=== PATIENT | male | born 1935 | race African-American/Black ===

== ENCOUNTER 2018-07-11 13:56 | Inpatient (IN) | payer MEDICARE ==
[~2018-07-11] VITALS: Ht 167.6 cm; Wt 75.5 kg
[~2018-07-11 13:56] MED LIST: METFORMIN
[2018-07-11] MEDS ORDERED: SODIUM CHLORIDE 0.9% 1,000 ML IV ONE (14:21)
[2018-07-11 15:24] LABS: CHLORIDE 98 mEq/L (98-107)
[2018-07-11 15:26] LABS: INR 1.1; PARTIAL THROMBOPLASTIN TIME 33.7 sec (23.4-31.0); PROTHROMBIN TIME 11.4 sec (9.1-11.1)
[2018-07-11 15:28] LABS: ETHANOL BLOOD < 10 mg/dL
[2018-07-11 15:30] LABS: BASOPHILS % 0.4 % (0.0-2.0); EOSINOPHILS % 0.3 % (0.0-5.0); HEMATOCRIT. 39.9 % (42.0-52.0); HEMOGLOBIN. 13.4 g/dL (14.0-18.0); LYMPHOCYTES % 31.7 % (20.0-50.0); MEAN CORPUSCULAR HEMOGLOBIN 28.2 pg (28.0-32.0); MEAN PLATELET VOLUME 10.2 fl (7.4-10.4); MONOCYTES % 5.6 % (2.0-8.0); PLATELET 157 x1000/uL (130-400); RED BLOOD CELL COUNT 4.75 mill/uL (4.7-6.1); RED CELL DISTRIBUTION WIDTH 14.6 % (11.6-14.6)
[2018-07-11 15:32] LABS: CREATINE KINASE 128 IU/L (39-308)
[2018-07-11] MEDS ORDERED: ENOXAPARIN 40MG/0.4ML SYR SUBCUT SCH (18:15)
[2018-07-11] MEDS ORDERED: MAGNESIUM/ALUMINUM HYDROXIDE/SIMETHICONE 30ML UDC PO PRN (18:15)
[2018-07-11] MEDS ORDERED: CLONIDINE 0.1MG TABLET PO PRN (18:15)
[2018-07-11] MEDS ORDERED: ONDANSETRON HCL 4MG/2ML INJ IV PRN (18:15)
[2018-07-11] MEDS ORDERED: GUAIFENESIN 200MG/10ML SUGAR FREE UDC PO PRN (18:15)
[2018-07-11] MEDS ORDERED: ACETAMINOPHEN 325MG TABLET PO PRN (18:15)
[2018-07-11] MEDS ORDERED: HYDROMORPHONE HCL/PF 2MG/ML CPJ IV PRN (18:30)
[2018-07-11 18:45] LABS: CLARITY URINE CLEAR (CLEAR); COLOR URINE YELLOW (YELLOW); KETONES URINE TRACE (NEGATIVE); LEUKOCYTE ESTERASE URINE NEGATIVE (NEGATIVE); NITRITE URINE NEGATIVE (NEGATIVE); OCCULT BLOOD URINE TRACE (NEGATIVE); PROTEIN URINE 1+ (NEGATIVE); SPECIFIC GRAVITY URINE 1.018 (1.005-1.030)
[2018-07-11 18:52] LABS: PHOSPHORUS 2.4 mg/dL (2.5-4.9)
[2018-07-11 19:00] LABS: *BARBITURATES SCREEN URINE NEGATIVE (NEGATIVE); *COCAINE SCREEN URINE NEGATIVE (NEGATIVE); METHADONE URINE SCREEN NEGATIVE (NEGATIVE); OPIATES URINE SCREEN NEGATIVE (NEGATIVE); PHENCYCLIDINE URINE SCREEN NEGATIVE (NEGATIVE)
[2018-07-11 19:01] LABS: CANNABINOID URINE SCREEN NEGATIVE (NEGATIVE)
[2018-07-11 19:04] LABS: *BENZODIAZEPINES SCREEN URINE NEGATIVE (NEGATIVE)
[2018-07-11 19:10] LABS: *AMPHETAMINES SCREEN URINE NEGATIVE (NEGATIVE)
[2018-07-11 21:10] VITALS: BP 106/70
[2018-07-12] VITALS: BP 114/68
[2018-07-12] MEDS ORDERED: PANTOPRAZOLE 40MG DR TABLET PO SCH ×2 (00:15→07:20)
[2018-07-12] MEDS ORDERED: MAGNESIUM 4 G PREMIX 100 ML IV SCH (01:00)
[2018-07-12 01:19] LABS: CREATINE KINASE MB FRACTION 3.2 ng/mL (0.5-3.6)
[2018-07-12] MEDS: IPRATROPIUM/ALBUTEROL 0.5-3(2.5)MG/3ML NEB HHN SCH ×6 (01:25→20:20)
[2018-07-12] MEDS ORDERED: PAMIDRONATE DISODIUM 60 MG in SODIUM CHLORIDE 0.9% 1,000 ML IV SCH (02:00)
[2018-07-12 04:00] VITALS: BP 111/63
[2018-07-12 08:00] VITALS: BP_SYST 104; BP_SYST 114; BP_DIAS 60; BP_DIAS 68
[2018-07-12 08:02] LABS: BASOPHILS % 0.3 % (0.0-2.0); EOSINOPHILS % 0.5 % (0.0-5.0); HEMATOCRIT. 35.9 % (42.0-52.0); HEMOGLOBIN. 11.8 g/dL (14.0-18.0); LYMPHOCYTES % 27.9 % (20.0-50.0); MEAN CORPUSCULAR VOLUME 85.5 fL (80.0-94.0); MONOCYTES % 8.2 % (2.0-8.0); NEUTROPHILS % 63.1 % (40.0-76.0); PLATELET 132 x1000/uL (130-400); RED CELL DISTRIBUTION WIDTH 14.5 % (11.6-14.6)
[2018-07-12] MEDS: SODIUM CHL 0.45% + KCL 20MEQ/L 1,000 ML IV SCH ×3 (08:12→18:40)
[2018-07-12] MEDS: PANTOPRAZOLE SODIUM 40 MG/VIAL IV SCH (09:20)
[2018-07-12] MEDS: ENOXAPARIN 40MG/0.4ML SYR SUBCUT SCH (09:21)
[2018-07-12 09:43] LABS: CREATINE KINASE MB FRACTION 2.5 ng/mL (0.5-3.6)
[2018-07-12 09:53] LABS: CHLORIDE 103 mEq/L (98-107); PHOSPHORUS 1.8 mg/dL (2.5-4.9)
[2018-07-12 12:00] VITALS: BP 110/62
[2018-07-12 16:00] VITALS: BP 109/59
[2018-07-12 17:26] LABS: AMMONIA 33 uMol/L (<32)
[2018-07-12 17:31] LABS: T4 FREE 0.99 ng/dL (0.76-1.46)
[2018-07-12] MEDS ORDERED: DEXTROSE 50% WATER 50ML SYRINGE IV PRN (19:15)
[2018-07-12 20:00] VITALS: BP 108/63
[2018-07-12] MEDS: BLOOD SUGAR DIAGNOSTIC STRIP TEST SCH (21:03)
[2018-07-12] MEDS: INSULIN LISPRO 100 UNITS/ML SUBCUT SCH (21:49)
[2018-07-13] VITALS (8 sets, daily range): BP systolic 92–129; BP diastolic 41–68
[2018-07-13] MEDS: IPRATROPIUM/ALBUTEROL 0.5-3(2.5)MG/3ML NEB HHN SCH ×6 (00:17→20:28)
[2018-07-13] MEDS: SODIUM CHL 0.45% + KCL 20MEQ/L 1,000 ML IV SCH ×4 (02:08→16:59)
[2018-07-13] MEDS: BLOOD SUGAR DIAGNOSTIC STRIP TEST SCH ×4 (06:34→20:48)
[2018-07-13] MEDS: INSULIN LISPRO 100 UNITS/ML SUBCUT SCH ×4 (07:50→20:48)
[2018-07-13] MEDS: PANTOPRAZOLE SODIUM 40 MG/VIAL IV SCH (09:27)
[2018-07-13] MEDS: ENOXAPARIN 40MG/0.4ML SYR SUBCUT SCH (09:28)
[2018-07-13 20:46] LABS: BASOPHILS % 0.5 % (0.0-2.0); EOSINOPHILS % 1.5 % (0.0-5.0); HEMATOCRIT. 29.6 % (42.0-52.0); MEAN CORPUSCULAR HEMOGLOBIN 28.3 pg (28.0-32.0); MEAN CORPUSCULAR VOLUME 83.9 fL (80.0-94.0); MEAN PLATELET VOLUME 10.1 fl (7.4-10.4); MONOCYTES % 8.6 % (2.0-8.0); NEUTROPHILS % 63.4 % (40.0-76.0); PLATELET 114 x1000/uL (130-400); RED BLOOD CELL COUNT 3.53 mill/uL (4.7-6.1); RED CELL DISTRIBUTION WIDTH 14.6 % (11.6-14.6)
[2018-07-14] VITALS: BP 117/62
[2018-07-14] MEDS: SODIUM CHL 0.45% + KCL 20MEQ/L 1,000 ML IV SCH ×2 (01:05→09:16)
[2018-07-14 04:09] VITALS: BP 105/68
[2018-07-14] MEDS: IPRATROPIUM/ALBUTEROL 0.5-3(2.5)MG/3ML NEB HHN SCH ×6 (04:37→19:58)
[2018-07-14] MEDS: BLOOD SUGAR DIAGNOSTIC STRIP TEST SCH ×4 (06:14→21:42)
[2018-07-14 07:29] LABS: BASOPHILS % 0.1 % (0.0-2.0); EOSINOPHILS % 1.4 % (0.0-5.0); HEMATOCRIT. 30.8 % (42.0-52.0); HEMOGLOBIN. 10.3 g/dL (14.0-18.0); LYMPHOCYTES % 29.4 % (20.0-50.0); MEAN CORPUSCULAR HEMOGLOBIN 27.9 pg (28.0-32.0); MEAN CORPUSCULAR VOLUME 83.4 fL (80.0-94.0); MEAN PLATELET VOLUME 10.7 fl (7.4-10.4); MONOCYTES % 8.2 % (2.0-8.0); NEUTROPHILS % 60.9 % (40.0-76.0); PLATELET 117 x1000/uL (130-400); RED BLOOD CELL COUNT 3.69 mill/uL (4.7-6.1); RED CELL DISTRIBUTION WIDTH 14.4 % (11.6-14.6)
[2018-07-14] MEDS: INSULIN LISPRO 100 UNITS/ML SUBCUT SCH ×4 (07:50→21:42)
[2018-07-14 07:54] VITALS: BP 114/69
[2018-07-14] MEDS: FAMOTIDINE 20MG/2ML VIAL IV SCH (08:33)
[2018-07-14] MEDS: ENOXAPARIN 40MG/0.4ML SYR SUBCUT SCH (08:33)
[2018-07-14 09:25] LABS: PHOSPHORUS 0.3 mg/dL (2.5-4.9)
[2018-07-14 12:08] VITALS: BP 113/66
[2018-07-14] MEDS ORDERED: MAGNESIUM SULFATE 2 GM in DEXTROSE 5% WATER 50 ML IV NR (12:30)
[2018-07-14] MEDS ORDERED: SODIUM PHOS,M-BASIC-D-BASIC 20 MM in DEXT 5% WATER 243.3333 ML IV NR (13:00)
[2018-07-14 16:34] VITALS: BP 119/69
[2018-07-14 17:00] LABS: PHOSPHORUS 0.3 mg/dL (2.5-4.9)
[2018-07-14 20:50] VITALS: BP 124/74
[2018-07-15] VITALS (7 sets, daily range): BP systolic 115–153; BP diastolic 74–103
[2018-07-15] MEDS: SODIUM CHL 0.45% + KCL 20MEQ/L 1,000 ML IV SCH (00:11)
[2018-07-15] MEDS: IPRATROPIUM/ALBUTEROL 0.5-3(2.5)MG/3ML NEB HHN SCH ×6 (00:23→20:46)
[2018-07-15] MEDS: BLOOD SUGAR DIAGNOSTIC STRIP TEST SCH ×4 (06:35→21:55)
[2018-07-15] MEDS: INSULIN LISPRO 100 UNITS/ML SUBCUT SCH ×5 (07:50→21:00)
[2018-07-15] MEDS: FAMOTIDINE 20MG/2ML VIAL IV SCH (08:43)
[2018-07-15] MEDS: ENOXAPARIN 40MG/0.4ML SYR SUBCUT SCH (08:43)
[2018-07-15] MEDS ORDERED: GLIMEPIRIDE 2MG TABLET PO NR (08:45)
[2018-07-15 10:32] LABS: BASOPHILS % 0.3 % (0.0-2.0); EOSINOPHILS % 0.5 % (0.0-5.0); HEMATOCRIT. 32.1 % (42.0-52.0); HEMOGLOBIN. 10.6 g/dL (14.0-18.0); LYMPHOCYTES % 18.9 % (20.0-50.0); MEAN CORPUSCULAR HEMOGLOBIN 27.9 pg (28.0-32.0); MEAN CORPUSCULAR VOLUME 84.9 fL (80.0-94.0); MONOCYTES % 7.3 % (2.0-8.0); PLATELET 118 x1000/uL (130-400); RED BLOOD CELL COUNT 3.79 mill/uL (4.7-6.1); RED CELL DISTRIBUTION WIDTH 14.6 % (11.6-14.6)
[2018-07-15] MEDS: POTASSIUM-SODIUM PHOSPHATE POWDER PACKET PO SCH ×2 (10:50→17:43)
[2018-07-15 11:46] LABS: PHOSPHORUS 0.7 mg/dL (2.5-4.9)
[2018-07-15] MEDS: SODIUM CHLORIDE 0.45% 1,000 ML IV SCH ×2 (13:15→18:19)
[2018-07-15] MEDS ORDERED: MAGNESIUM 2 G PREMIX 50 ML IV NR (14:00)
[2018-07-15] MEDS ORDERED: SODIUM PHOS,M-BASIC-D-BASIC 20 MM in DEXT 5% WATER 243.3333 ML IV NR (14:30)
[2018-07-16] MEDS: IPRATROPIUM/ALBUTEROL 0.5-3(2.5)MG/3ML NEB HHN SCH ×3 (00:34→09:05)
[2018-07-16 04:00] VITALS: BP 114/76
[2018-07-16] MEDS: BLOOD SUGAR DIAGNOSTIC STRIP TEST SCH (06:30)
[2018-07-16] MEDS ORDERED: GLIMEPIRIDE 2MG TABLET PO SCH (07:20)
[2018-07-16] MEDS: INSULIN LISPRO 100 UNITS/ML SUBCUT SCH (07:50)
[2018-07-16 08:35] VITALS: BP 134/68
[2018-07-16] MEDS: FAMOTIDINE 20MG/2ML VIAL IV SCH (08:35)
[2018-07-16] MEDS: POTASSIUM-SODIUM PHOSPHATE POWDER PACKET PO SCH (08:54)
[2018-07-16] MEDS: ENOXAPARIN 40MG/0.4ML SYR SUBCUT SCH (08:55)
== END 2018-07-16 11:34 | DRG 314 ==
LOC: ER 13:56 → 6WST 16:58 → EDBEDREQTM 17:07 → EDBEDREQ 17:07 → ENRESERV 20:05 → CANRESERV 20:05 → ENRESERV 20:35 → CANRESERV 20:35 → ENRESERV 20:37
PROVIDERS: ADMIT Internal Medicine Geriatric Medicine; ATTEND Internal Medicine Geriatric Medicine
DX: I95.9 Hypotension, unspecified (principal); G92 Toxic encephalopathy; N17.9 Acute kidney failure, unspecified; I13.0 Hypertensive heart and chronic kidney disease with heart failure and stage 1 through stage 4 chronic kidney disease, or unspecified chronic kidney disease; N18.9 Chronic kidney disease, unspecified; I50.9 Heart failure, unspecified; D63.8 Anemia in other chronic diseases classified elsewhere; E86.0 Dehydration; E03.9 Hypothyroidism, unspecified; R00.0 Tachycardia, unspecified; E83.42 Hypomagnesemia; N40.0 Benign prostatic hyperplasia without lower urinary tract symptoms; E11.22 Type 2 diabetes mellitus with diabetic chronic kidney disease; N13.9 Obstructive and reflux uropathy, unspecified; E83.52 Hypercalcemia; E21.0 Primary hyperparathyroidism; E83.39 Other disorders of phosphorus metabolism; E83.51 Hypocalcemia; E88.09 Other disorders of plasma-protein metabolism, not elsewhere classified; H91.90 Unspecified hearing loss, unspecified ear; Z79.4 Long term (current) use of insulin; Z86.711 Personal history of pulmonary embolism; Z86.718 Personal history of other venous thrombosis and embolism; Z87.891 Personal history of nicotine dependence; Z90.49 Acquired absence of other specified parts of digestive tract; Z95.5 Presence of coronary angioplasty implant and graft; Z79.84 Long term (current) use of oral hypoglycemic drugs
CPT/HCPCS: 36415; 70450; 70551; 71045; 80048; 80053; 80305; 81003; 82140; 82270; 82330; 82550; 82553; 82607; 82746; 82962; 83036; 83540; 83550; 83605; 83690; 83735; 83880; 83970; 84100; 84439; 84443; 84481; 84484; 85025; 85610; 85730; 87077; 87086; 87186; 93005; 93306; 93970; 94640; 96360; 97162; 97530; 99285; C1893; C9113; G0482; J1650; J1815; J2405; J2430; J3475; J3480; J3490; J7030; J7050; J7060; J7620

== ENCOUNTER → 2018-08-26 | Outpatient (CLI) | payer MEDICARE ==
[~2018-08-26] MED LIST changes: +ACET-2708 PO; +AMLO2.5T45 MT; +CLON0.1T PO; +DOCU250C14 PO; +HYDR2TAB4 PO; +INSLIS SUBCUT; +LINA5TAB PO; +LOV40 SQ; +METO2.5T14 MT; +ONDA4TAB5 PO; +SIME125C PO; +SITA25TA3 PO
== END | disposition home or self-care (01) ==
LOC: NM 07:23
PROVIDERS: ATTEND Surgery
DX: E21.3 Hyperparathyroidism, unspecified (principal)
CPT/HCPCS: 78070; A9500

== ENCOUNTER 2018-09-02 14:53 | Inpatient (IN) | payer MEDICARE ==
[~2018-09-02] VITALS: Ht 182.9 cm; Wt 82.1 kg
[~2018-09-02 14:53] MED LIST changes: -ACET-2708 PO; -AMLO2.5T45 MT; -CLON0.1T PO; -DOCU250C14 PO; -HYDR2TAB4 PO; -INSLIS SUBCUT; -LINA5TAB PO; -LOV40 SQ; -METO2.5T14 MT; -ONDA4TAB5 PO; -SIME125C PO; -SITA25TA3 PO
[2018-09-02] MEDS ORDERED: SODIUM CHLORIDE 0.9% 1,000 ML IV ONE ×2 (15:41→18:00)
[2018-09-02 17:06] LABS: BASOPHILS % 0.3 % (0.0-2.0); EOSINOPHILS % 1.6 % (0.0-5.0); HEMATOCRIT. 35.8 % (42.0-52.0); HEMOGLOBIN. 11.7 g/dL (14.0-18.0); LYMPHOCYTES % 36.5 % (20.0-50.0); MEAN CORPUSCULAR HEMOGLOBIN 27.6 pg (28.0-32.0); MEAN CORPUSCULAR VOLUME 84.3 fL (80.0-94.0); MEAN PLATELET VOLUME 9.4 fl (7.4-10.4); NEUTROPHILS % 55.6 % (40.0-76.0); PLATELET 226 x1000/uL (130-400); RED BLOOD CELL COUNT 4.25 mill/uL (4.7-6.1); RED CELL DISTRIBUTION WIDTH 14.5 % (11.6-14.6)
[2018-09-02 17:09] LABS: INR 1.1; PROTHROMBIN TIME 10.8 sec (9.1-11.1)
[2018-09-02 17:13] LABS: CHLORIDE 104 mEq/L (98-107)
[2018-09-02] MEDS ORDERED: ASPIRIN 81MG TABLET PO ONE (17:45)
[2018-09-02] MEDS ORDERED: ACETAMINOPHEN 325MG TABLET PO PRN (21:00)
[2018-09-02] MEDS ORDERED: CLONIDINE 0.1MG TABLET PO PRN (21:00)
[2018-09-02] MEDS ORDERED: IPRATROPIUM/ALBUTEROL 0.5-3(2.5)MG/3ML NEB HHN SCH (21:00)
[2018-09-02] MEDS ORDERED: ONDANSETRON HCL 4MG/2ML INJ IV PRN (21:00)
[2018-09-02] MEDS ORDERED: HYDROMORPHONE HCL/PF 2MG/ML CPJ IV PRN (21:00)
[2018-09-02] MEDS ORDERED: MAGNESIUM/ALUMINUM HYDROXIDE/SIMETHICONE 30ML UDC PO PRN (21:00)
[2018-09-02] MEDS ORDERED: METO2.5T14 MT (23:52)
[2018-09-02] MEDS ORDERED: AMLO2.5T45 MT (23:52)
[2018-09-02] MEDS ORDERED: SITA25TA3 PO (23:58)
[2018-09-03] VITALS: BP 159/95
[2018-09-03 00:15] LABS: CREATINE KINASE MB FRACTION 1.5 ng/mL (0.5-3.6)
[2018-09-03 00:22] VITALS: BP 159/95
[2018-09-03] MEDS ORDERED: PAMIDRONATE DISODIUM 60 MG in SODIUM CHLORIDE 0.9% 1,000 ML IV NR (01:00)
[2018-09-03] MEDS ORDERED: DEXTROSE 50% WATER 50ML SYRINGE IV PRN (02:15)
[2018-09-03 04:00] VITALS: BP 129/73
[2018-09-03] MEDS: BLOOD SUGAR DIAGNOSTIC STRIP TEST SCH ×4 (06:11→20:43)
[2018-09-03 07:48] LABS: BASOPHILS % 0.4 % (0.0-2.0); EOSINOPHILS % 1.2 % (0.0-5.0); HEMATOCRIT. 29.4 % (42.0-52.0); HEMOGLOBIN. 9.9 g/dL (14.0-18.0); LYMPHOCYTES % 28.6 % (20.0-50.0); MEAN CORPUSCULAR HEMOGLOBIN 28.1 pg (28.0-32.0); MEAN CORPUSCULAR VOLUME 83.9 fL (80.0-94.0); MEAN PLATELET VOLUME 9.5 fl (7.4-10.4); MONOCYTES % 5.7 % (2.0-8.0); NEUTROPHILS % 64.1 % (40.0-76.0); PLATELET 189 x1000/uL (130-400); RED CELL DISTRIBUTION WIDTH 14.6 % (11.6-14.6)
[2018-09-03] MEDS: INSULIN LISPRO 100 UNITS/ML SUBCUT SCH ×4 (07:50→20:43)
[2018-09-03 08:01] LABS: CHLORIDE 110 mEq/L (98-107)
[2018-09-03 08:12] LABS: CREATINE KINASE MB FRACTION 1.3 ng/mL (0.5-3.6)
[2018-09-03 08:45] LABS: CLARITY URINE CLOUDY (CLEAR); COLOR URINE YELLOW (YELLOW); KETONES URINE NEGATIVE (NEGATIVE); LEUKOCYTE ESTERASE URINE 1+ (NEGATIVE); NITRITE URINE NEGATIVE (NEGATIVE); OCCULT BLOOD URINE TRACE (NEGATIVE); PROTEIN URINE TRACE (NEGATIVE); SPECIFIC GRAVITY URINE 1.013 (1.005-1.030); UROBILINOGEN URINE 0.2 E.U./dL (0.2-1.0)
[2018-09-03] MEDS: SODIUM CHL 0.45% + KCL 20MEQ/L 1,000 ML IV SCH ×4 (08:55→22:35)
[2018-09-03] MEDS: ENOXAPARIN 40MG/0.4ML SYR SUBCUT SCH (08:56)
[2018-09-03 09:22] LABS: *AMPHETAMINES SCREEN URINE NEGATIVE (NEGATIVE); *BARBITURATES SCREEN URINE NEGATIVE (NEGATIVE); *BENZODIAZEPINES SCREEN URINE NEGATIVE (NEGATIVE); *COCAINE SCREEN URINE NEGATIVE (NEGATIVE); CANNABINOID URINE SCREEN NEGATIVE (NEGATIVE); METHADONE URINE SCREEN NEGATIVE (NEGATIVE); OPIATES URINE SCREEN NEGATIVE (NEGATIVE); PHENCYCLIDINE URINE SCREEN NEGATIVE (NEGATIVE)
[2018-09-03] MEDS ORDERED: MEDICATION NOT ON FORMULARY EA (Amlodipine Besylate 1 TAB) MT SCH (09:45)
[2018-09-03] MEDS ORDERED: MEDICATION NOT ON FORMULARY EA (Sitagliptin Phosphate (Januvia) 1 TAB) PO SCH (09:45)
[2018-09-03 12:00] VITALS: BP 143/82
[2018-09-03] MEDS: LINAGLIPTIN 5MG TABLET PO SCH (13:26)
[2018-09-03] MEDS: AMLODIPINE 2.5MG TABLET PO SCH (13:26)
[2018-09-03 16:00] VITALS: BP 118/63
[2018-09-03] MEDS: DOCUSATE SODIUM 100MG CAPSULE PO SCH (17:32)
[2018-09-03 20:48] VITALS: BP 107/63
[2018-09-04 00:27] VITALS: BP 124/67
[2018-09-04 04:00] VITALS: BP 133/84
[2018-09-04] MEDS: SODIUM CHL 0.45% + KCL 20MEQ/L 1,000 ML IV SCH ×2 (06:22→21:23)
[2018-09-04] MEDS: BLOOD SUGAR DIAGNOSTIC STRIP TEST SCH ×4 (06:22→21:08)
[2018-09-04] MEDS: INSULIN LISPRO 100 UNITS/ML SUBCUT SCH ×4 (07:50→21:00)
[2018-09-04 08:00] VITALS: BP 114/73
[2018-09-04] MEDS: AMLODIPINE 2.5MG TABLET PO SCH (08:27)
[2018-09-04] MEDS: LINAGLIPTIN 5MG TABLET PO SCH (08:27)
[2018-09-04] MEDS: ENOXAPARIN 40MG/0.4ML SYR SUBCUT SCH (08:29)
[2018-09-04 12:00] VITALS: BP 135/80
[2018-09-04 16:00] VITALS: BP 116/65
[2018-09-04] MEDS: DOCUSATE SODIUM 100MG CAPSULE PO SCH (17:19)
[2018-09-04 20:00] VITALS: BP 132/80
[2018-09-05] VITALS (7 sets, daily range): BP systolic 108–159; BP diastolic 67–94
[2018-09-05] MEDS: SODIUM CHL 0.45% + KCL 20MEQ/L 1,000 ML IV SCH ×2 (05:54→09:00)
[2018-09-05] MEDS: BLOOD SUGAR DIAGNOSTIC STRIP TEST SCH ×3 (06:22→17:20)
[2018-09-05 07:23] LABS: BASOPHILS % 0.2 % (0.0-2.0); EOSINOPHILS % 1.3 % (0.0-5.0); HEMATOCRIT. 29.5 % (42.0-52.0); HEMOGLOBIN. 9.7 g/dL (14.0-18.0); LYMPHOCYTES % 21.2 % (20.0-50.0); MEAN CORPUSCULAR HEMOGLOBIN 27.9 pg (28.0-32.0); MEAN CORPUSCULAR VOLUME 84.9 fL (80.0-94.0); MEAN PLATELET VOLUME 9.3 fl (7.4-10.4); MONOCYTES % 5.9 % (2.0-8.0); NEUTROPHILS % 71.4 % (40.0-76.0); PLATELET 203 x1000/uL (130-400); RED BLOOD CELL COUNT 3.47 mill/uL (4.7-6.1); RED CELL DISTRIBUTION WIDTH 14.8 % (11.6-14.6)
[2018-09-05] MEDS: INSULIN LISPRO 100 UNITS/ML SUBCUT SCH ×3 (07:50→17:44)
[2018-09-05 09:40] LABS: CHLORIDE 107 mEq/L (98-107)
[2018-09-05] MEDS: AMLODIPINE 2.5MG TABLET PO SCH (09:56)
[2018-09-05] MEDS: ENOXAPARIN 40MG/0.4ML SYR SUBCUT SCH (09:56)
[2018-09-05] MEDS: LINAGLIPTIN 5MG TABLET PO SCH (09:56)
[2018-09-05] MEDS: DOCUSATE SODIUM 100MG CAPSULE PO SCH (17:55)
[2018-09-09] MEDS ORDERED: DOCU250C14 PO (14:20)
[2018-09-09] MEDS ORDERED: LINA5TAB PO (14:20)
[2018-09-09] MEDS ORDERED: LOV40 SQ (14:20)
== END 2018-09-05 20:55 | DRG 643 ==
LOC: ER 15:00 → EDBEDREQ 15:44 → 6WST 17:45 → EDBEDREQ 17:53 → EDBEDREQTM 17:53 → ENRESERV 21:32 → UNDODISIN 09-05 20:55
PROVIDERS: ADMIT Internal Medicine Geriatric Medicine; ATTEND Internal Medicine Geriatric Medicine
DX: E21.0 Primary hyperparathyroidism (principal); G92 Toxic encephalopathy; E44.0 Moderate protein-calorie malnutrition; D64.9 Anemia, unspecified; I10 Essential (primary) hypertension; G90.8 Other disorders of autonomic nervous system; E11.8 Type 2 diabetes mellitus with unspecified complications; R29.6 Repeated falls; M19.90 Unspecified osteoarthritis, unspecified site; E78.5 Hyperlipidemia, unspecified; H91.90 Unspecified hearing loss, unspecified ear; Z79.84 Long term (current) use of oral hypoglycemic drugs; Z82.49 Family history of ischemic heart disease and other diseases of the circulatory system; Z83.3 Family history of diabetes mellitus; Z90.49 Acquired absence of other specified parts of digestive tract; Z68.24 Body mass index [BMI] 24.0-24.9, adult; Z86.718 Personal history of other venous thrombosis and embolism; Z86.711 Personal history of pulmonary embolism; Z82.61 Family history of arthritis; E83.52 Hypercalcemia
CPT/HCPCS: 36415; 71045; 80048; 80305; 82330; 82553; 82962; 83605; 84439; 84443; 84484; 87077; 87186; 93005; 93970; 96360; 96361; 97116; 97162; 97535; 99285; J1650; J2430; J3480; J7030; J7040

== ENCOUNTER 2018-09-10 05:19 | Day surgery (SDC) | payer MEDICARE ==
[~2018-09-10] VITALS: Ht 182.9 cm; Wt 82.1 kg
[~2018-09-10 05:19] MED LIST changes: +AMLO2.5T45 MT; +DOCU250C14 PO; +LINA5TAB PO; +LOV40 SQ; -METFORMIN; +METO2.5T14 MT; +SITA25TA3 PO
[2018-09-10] MEDS ORDERED: SKIN ADHESIVE 0.7 GM EA TOP ONE (06:45)
[2018-09-10] MEDS ORDERED: BUPIVACAINE HCL/EPINEPHRINE 0.5%/0.0005 30ML ONE (06:45)
[2018-09-10 07:12] LABS: INR 1.1; PARTIAL THROMBOPLASTIN TIME 42.2 sec (23.4-31.0); PROTHROMBIN TIME 10.8 sec (9.1-11.1)
[2018-09-10] MEDS ORDERED: FENTANYL CITRATE/PF 50MCG/ML 2ML VIAL ONE ×3 (07:30→08:27)
[2018-09-10] MEDS ORDERED: NEOSTIGMINE METHYLSULFATE 1MG/ML 10 ML VIAL ONE ×2 (07:31→07:32)
[2018-09-10] MEDS ORDERED: EPHEDRINE SULFATE 50MG/ML VIAL ONE (07:32)
[2018-09-10] MEDS ORDERED: PHENYLEPHRINE HCL 10 MG/ML 1ML (IV VIAL) IV ONE (07:32)
[2018-09-10] MEDS ORDERED: LIDOCAINE HCL/PF 1% 10 MG/ML 5ML VIAL ONE (07:32)
[2018-09-10] MEDS ORDERED: SODIUM CHLORIDE 0.9% 10ML VIAL ONE (07:32)
[2018-09-10] MEDS ORDERED: CEFAZOLIN SODIUM 1000MG/VIAL ONE (07:32)
[2018-09-10] MEDS ORDERED: SUCCINYLCHOLINE CHLORIDE 200MG/10ML IV ONE (07:32)
[2018-09-10] MEDS ORDERED: MIDAZOLAM HCL 2 MG/2 ML VIAL ONE (07:32)
[2018-09-10] MEDS ORDERED: GLYCOPYRROLATE 0.2 MG/ML 2ML VIAL ONE (07:32)
[2018-09-10] MEDS ORDERED: DEXAMETHASONE 4MG/ML 1ML VIAL ONE (07:32)
[2018-09-10] MEDS ORDERED: ONDANSETRON HCL 4MG/2ML INJ ONE (07:32)
[2018-09-10] MEDS ORDERED: ROCURONIUM BROMIDE 10MG/ML VIAL 5ML IV ONE (07:32)
[2018-09-10] MEDS ORDERED: PROPOFOL 200MG/20ML VIAL IV ONE (07:32)
[2018-09-10] MEDS ORDERED: METOCLOPRAMIDE HCL 10MG/2ML VIAL ONE (07:35)
[2018-09-10] MEDS ORDERED: ALBUMIN HUMAN 12.5G/250ML (5%) IV ONE (08:07)
[2018-09-10] MEDS ORDERED: HYDR2TAB4 PO (08:26)
[2018-09-10] MEDS ORDERED: ONDA4TAB5 PO (08:26)
[2018-09-10] MEDS ORDERED: SIME125C PO (08:26)
[2018-09-10] MEDS ORDERED: ACET-2708 PO (08:26)
[2018-09-10] MEDS ORDERED: CLON0.1T PO (08:26)
[2018-09-10] MEDS ORDERED: INSLIS SUBCUT (08:26)
[2018-09-10] MEDS ORDERED: ONDANSETRON HCL 4MG/2ML INJ IV PRN (09:45)
[2018-09-10] MEDS ORDERED: HYDROMORPHONE HCL/PF 2MG/ML CPJ IV PRN (09:45)
[2018-09-10] MEDS ORDERED: MEPERIDINE HCL/PF 25MG/ML CPJ IV PRN (09:45)
[2018-09-10] MEDS ORDERED: SODIUM CHLORIDE 0.9% 1,000 ML IV ONE (09:52)
[2018-09-10] MEDS ORDERED: HYDROCODONE/ACETAMINOPHEN 5/325MG TABLET PO NR (15:15)
[2018-09-10 15:28] VITALS: BP 145/96
== END 2018-09-10 16:10 | disposition home or self-care (01) ==
LOC: OR 05:19
PROVIDERS: ATTEND Surgery
DX: D35.1 Benign neoplasm of parathyroid gland (principal); D64.9 Anemia, unspecified; E78.5 Hyperlipidemia, unspecified; M19.90 Unspecified osteoarthritis, unspecified site; I13.0 Hypertensive heart and chronic kidney disease with heart failure and stage 1 through stage 4 chronic kidney disease, or unspecified chronic kidney disease; E11.22 Type 2 diabetes mellitus with diabetic chronic kidney disease; N18.9 Chronic kidney disease, unspecified; I50.9 Heart failure, unspecified; N17.9 Acute kidney failure, unspecified; N40.0 Benign prostatic hyperplasia without lower urinary tract symptoms; E03.9 Hypothyroidism, unspecified; Z79.01 Long term (current) use of anticoagulants; Z79.899 Other long term (current) drug therapy; Z79.4 Long term (current) use of insulin; Z79.84 Long term (current) use of oral hypoglycemic drugs; Z90.49 Acquired absence of other specified parts of digestive tract; Z87.891 Personal history of nicotine dependence; Z95.5 Presence of coronary angioplasty implant and graft
CPT/HCPCS: 36415; 60500; 82962; 85610; 85730; 86850; 86900; 86901; 88305; 88331; A4216; J0171; J0330; J0690; J1100; J1170; J2250; J2370; J2405; J2710; J2765; J3010; J3490; P9041; J2704; J7030

== ENCOUNTER 2018-11-08 17:29 | Inpatient (IN) | payer MEDICARE ==
[~2018-11-08] VITALS: Ht 175.3 cm; Wt 78.6 kg
[~2018-11-08 17:29] MED LIST changes: +ACET-2708 PO; +CLON0.1T PO; +ETOMIDATE 2MG/ML 10ML VIAL IV ONE; +HYDR2TAB4 PO; +INSLIS SUBCUT; +ONDA4TAB5 PO; +SIME125C PO; +SUCCINYLCHOLINE CHLORIDE 200MG/10ML IV ONE
[2018-11-08] MEDS ORDERED: SODIUM CHLORIDE 0.9% 1,000 ML IV ONE (17:42)
[2018-11-08] MEDS ORDERED: DILTIAZEM HCL 5MG/ML 5ML VIAL IV ONE ×3 (19:00→21:30)
[2018-11-08] MEDS ORDERED: VANCOMYCIN 1 G PREMIX 200 ML IV ONE (19:15)
[2018-11-08] MEDS ORDERED: SODIUM CHLORIDE 0.9% 1000ML BAG (SEPSIS BOLUS) IV ONE (19:15)
[2018-11-08] MEDS ORDERED: PIPERACILLIN/TAZ 3.375G PREMIX 50 ML IV ONE (19:15)
[2018-11-08 19:50] LABS: BASOPHILS % 0.3 % (0.0-2.0); HEMATOCRIT. 30.6 % (42.0-52.0); HEMOGLOBIN. 9.8 g/dL (14.0-18.0); LYMPHOCYTES % 7.6 % (20.0-50.0); MEAN CORPUSCULAR HEMOGLOBIN 26.7 pg (28.0-32.0); MEAN CORPUSCULAR VOLUME 83.6 fL (80.0-94.0); MEAN PLATELET VOLUME 9.4 fl (7.4-10.4); MONOCYTES % 4.7 % (2.0-8.0); NEUTROPHILS % 87.4 % (40.0-76.0); PLATELET 277 x1000/uL (130-400); RED BLOOD CELL COUNT 3.66 mill/uL (4.7-6.1); RED CELL DISTRIBUTION WIDTH 14.4 % (11.6-14.6)
[2018-11-08 19:52] LABS: CHLORIDE 103 mEq/L (98-107)
[2018-11-08] MEDS ORDERED: NOREPINEPHRINE 4 MG in DEXT 5% WATER 246 ML IV ONE (22:30)
[2018-11-08] MEDS ORDERED: MIDAZOLAM HCL 50 MG in DEXTROSE 5% WATER 40 ML IV ONE (22:45)
[2018-11-08] MEDS ORDERED: MIDAZOLAM HCL 2 MG/2 ML VIAL IV ONE (22:45)
[2018-11-08 22:59] LABS: BG BASE EXCESS -9.1 mmol/L (-2.0-2.0); BG CARBOXYHEMOGLOBIN 0.2 % (0.5-1.5); BG DEOXYHEMOGLOBIN 12.2 % (0.0-5.0); BG FRACTION INSPIRED OXYGEN 50; BG HCO3 ACT 18.1 mmol/L (22.0-26.0); BG METHEMOGLOBIN 0.4 % (0.0-1.5); BG OXYGEN SATURATION 87.7 % (92.0-98.5); BG OXYHEMOGLOBIN 87.2 % (94.0-97.0); BG PCO2 44.7 mmHg (35.0-45.0); BG PH 7.225 (7.350-7.450); BG PO2 64.2 mmHg (75.0-100.0); BG SAMPLE SITE RIGHT RADIAL; BG TIDAL VOLUME(mL) 500 mL; BG TOTAL HEMOGLOBIN 9.6 g/dL (12.0-18.0); BG VENT MODE VENT - A/C; BG VENT RATE 16 set
[2018-11-08] MEDS ORDERED: NOREPINEPHRINE 4 MG in DEXT 5% WATER 246 ML IV NR (23:00)
[2018-11-08] MEDS ORDERED: MIDAZOLAM HCL 50 MG in DEXTROSE 5% WATER 40 ML IV NR (23:00)
[2018-11-08 23:32] LABS: CLARITY URINE CLOUDY (CLEAR); COLOR URINE YELLOW (YELLOW); KETONES URINE TRACE (NEGATIVE); LEUKOCYTE ESTERASE URINE NEGATIVE (NEGATIVE); NITRITE URINE NEGATIVE (NEGATIVE); OCCULT BLOOD URINE 2+ (NEGATIVE); PROTEIN URINE 2+ (NEGATIVE); SPECIFIC GRAVITY URINE 1.021 (1.005-1.030); UROBILINOGEN URINE 0.2 E.U./dL (0.2-1.0)
[2018-11-09] VITALS (100 sets, daily range): BP systolic 75–135; BP diastolic 42–91
[2018-11-09] MEDS: IPRATROPIUM/ALBUTEROL 0.5-3(2.5)MG/3ML NEB HHN SCH (01:25)
[2018-11-09] MEDS ORDERED: IPRATROPIUM/ALBUTEROL 0.5-3(2.5)MG/3ML NEB HHN PRN (06:15)
[2018-11-09] MEDS ORDERED: PIPERACILLIN/TAZ 3.375G PREMIX 50 ML IV SCH (06:15)
[2018-11-09] MEDS ORDERED: ACETAMINOPHEN 650MG/20.3ML UDC NG PRN (06:15)
[2018-11-09 06:25] LABS: CHLORIDE 109 mEq/L (98-107); HEMATOCRIT. 31.8 % (42.0-52.0); MEAN CORPUSCULAR HEMOGLOBIN 27.1 pg (28.0-32.0); MEAN CORPUSCULAR VOLUME 86.2 fL (80.0-94.0); MEAN PLATELET VOLUME 9.9 fl (7.4-10.4); PLATELET 208 x1000/uL (130-400); RED BLOOD CELL COUNT 3.69 mill/uL (4.7-6.1); RED CELL DISTRIBUTION WIDTH 14.9 % (11.6-14.6)
[2018-11-09 07:07] LABS: BG BASE EXCESS -3.1 mmol/L (-2.0-2.0); BG CARBOXYHEMOGLOBIN 0.3 % (0.5-1.5); BG DEOXYHEMOGLOBIN 6.8 % (0.0-5.0); BG HCO3 ACT 20.7 mmol/L (22.0-26.0); BG METHEMOGLOBIN 0.1 % (0.0-1.5); BG OXYGEN SATURATION 93.2 % (92.0-98.5); BG OXYHEMOGLOBIN 92.8 % (94.0-97.0); BG PCO2 32.2 mmHg (35.0-45.0); BG PH 7.425 (7.350-7.450); BG PO2 70.9 mmHg (75.0-100.0); BG SAMPLE SITE RIGHT RADIAL; BG TIDAL VOLUME(mL) 500 mL; BG TOTAL HEMOGLOBIN 10.1 g/dL (12.0-18.0); BG VENT MODE VENT - A/C; BG VENT RATE 16 set
[2018-11-09] MEDS ORDERED: SODIUM BICARBONATE 50 MEQ in SODIUM CHLORIDE 0.45% 950 ML IV SCH (07:30)
[2018-11-09] MEDS ORDERED: DEXT IV SCH (07:30)
[2018-11-09] MEDS ORDERED: SODIUM BICARBONATE IV SCH (07:30)
[2018-11-09] MEDS ORDERED: NACL IV SCH (07:30)
[2018-11-09 07:46] LABS: PLATELET ESTIMATE NORMAL
[2018-11-09] MEDS ORDERED: BLOOD SUGAR DIAGNOSTIC STRIP TEST SCH (07:50)
[2018-11-09] MEDS ORDERED: INSULIN LISPRO 100 UNITS/ML SUBCUT SCH (08:20)
[2018-11-09] MEDS ORDERED: MAGNESIUM 4 G PREMIX 100 ML IV NR (08:30)
[2018-11-09] MEDS: PIPERACILLIN/TAZ 2.25G PREMIX 50 ML IV SCH ×3 (08:40→17:45)
[2018-11-09] MEDS ORDERED: ENOXAPARIN 40MG/0.4ML SYR SUBCUT SCH (09:00)
[2018-11-09] MEDS ORDERED: VANCOMYCIN 1 G PREMIX 200 ML IV SCH (09:00)
[2018-11-09] MEDS: ENOXAPARIN 30MG/0.3ML SYR SUBCUT SCH (10:22)
[2018-11-09] MEDS: PANTOPRAZOLE SODIUM 40 MG/VIAL IV SCH (10:22)
[2018-11-09] MEDS ORDERED: MIDAZOLAM HCL 50 MG in DEXTROSE 5% WATER 40 ML IV PRN (11:00)
[2018-11-09 11:29] LABS: CLARITY URINE TURBID (CLEAR); COLOR URINE YELLOW (YELLOW); KETONES URINE TRACE (NEGATIVE); LEUKOCYTE ESTERASE URINE NEGATIVE (NEGATIVE); NITRITE URINE NEGATIVE (NEGATIVE); OCCULT BLOOD URINE 2+ (NEGATIVE); PROTEIN URINE 2+ (NEGATIVE); UROBILINOGEN URINE 0.2 E.U./dL (0.2-1.0)
[2018-11-09] MEDS: BLOOD SUGAR DIAGNOSTIC STRIP TEST SCH ×2 (12:00→17:40)
[2018-11-09] MEDS: VANCOMYCIN 750 MG PREMIX 150 ML IV SCH (12:20)
[2018-11-09] MEDS: INSULIN LISPRO 100 UNITS/ML SUBCUT SCH ×2 (12:21→17:46)
[2018-11-09] MEDS: INSULIN GLARGINE UD 100 UNITS/ML SYR SUBCUT SCH ×2 (12:22→22:21)
[2018-11-09] MEDS: SODIUM CHLORIDE 0.9% 1,000 ML IV SCH ×2 (13:35→22:20)
[2018-11-09 17:23] LABS: CREATINE KINASE MB FRACTION 9.7 ng/mL (0.5-3.6)
[2018-11-09] MEDS: NOREPINEPHRINE 8 MG in DEXT 5% WATER 242 ML IV PRN (18:47)
[2018-11-10] VITALS (90 sets, daily range): BP systolic 85–143; BP diastolic 52–85
[2018-11-10] MEDS: BLOOD SUGAR DIAGNOSTIC STRIP TEST SCH ×5 (00:41→23:22)
[2018-11-10] MEDS: PIPERACILLIN/TAZ 2.25G PREMIX 50 ML IV SCH ×3 (00:44→11:43)
[2018-11-10] MEDS: INSULIN LISPRO 100 UNITS/ML SUBCUT SCH ×4 (00:45→17:35)
[2018-11-10] MEDS: NOREPINEPHRINE 8 MG in DEXT 5% WATER 242 ML IV PRN ×2 (04:50→13:49)
[2018-11-10 05:32] LABS: HEMATOCRIT. 28.3 % (42.0-52.0); MEAN CORPUSCULAR HEMOGLOBIN 26.7 pg (28.0-32.0); MEAN CORPUSCULAR VOLUME 84.1 fL (80.0-94.0); RED BLOOD CELL COUNT 3.36 mill/uL (4.7-6.1); RED CELL DISTRIBUTION WIDTH 14.9 % (11.6-14.6)
[2018-11-10 05:41] LABS: CHLORIDE 105 mEq/L (98-107)
[2018-11-10] MEDS: IPRATROPIUM/ALBUTEROL 0.5-3(2.5)MG/3ML NEB HHN SCH ×5 (05:48→20:43)
[2018-11-10 05:57] LABS: PHOSPHORUS 3.7 mg/dL (2.5-4.9)
[2018-11-10 05:58] LABS: CREATINE KINASE 699 IU/L (39-308)
[2018-11-10] MEDS ORDERED: DEXT 5%/0.9% NACL 1,000 ML IV SCH (06:00)
[2018-11-10 06:01] LABS: CREATINE KINASE MB FRACTION 9.9 ng/mL (0.5-3.6)
[2018-11-10] MEDS: PHENYLEPHRINE 20 MG in DEXT 5% WATER 498 ML IV PRN ×4 (06:49→18:00)
[2018-11-10 08:16] LABS: BG BASE EXCESS -5.9 mmol/L (-2.0-2.0); BG CARBOXYHEMOGLOBIN 0.3 % (0.5-1.5); BG FRACTION INSPIRED OXYGEN 50; BG HCO3 ACT 20.3 mmol/L (22.0-26.0); BG METHEMOGLOBIN 0.3 % (0.0-1.5); BG OXYGEN SATURATION 88.9 % (92.0-98.5); BG OXYHEMOGLOBIN 88.4 % (94.0-97.0); BG PCO2 43.1 mmHg (35.0-45.0); BG PH 7.291 (7.350-7.450); BG PO2 65.8 mmHg (75.0-100.0); BG SAMPLE SITE RIGHT RADIAL; BG TIDAL VOLUME(mL) 500 mL; BG TOTAL HEMOGLOBIN 9.6 g/dL (12.0-18.0); BG VENT MODE VENT - A/C; BG VENT RATE 16 set
[2018-11-10] MEDS ORDERED: SODIUM POLYSTYRENE SULFONATE 15 G/60 ML BOT PR SCH (09:00)
[2018-11-10] MEDS ORDERED: SODIUM BICARBONATE 8.4% 1 MEQ/ML 50ML SYR IV NR (09:00)
[2018-11-10] MEDS: NACL IV SCH ×2 (09:26→18:52)
[2018-11-10] MEDS: PANTOPRAZOLE SODIUM 40 MG/VIAL IV SCH (09:26)
[2018-11-10] MEDS: DEXT IV SCH ×2 (09:26→18:52)
[2018-11-10] MEDS: SODIUM BICARBONATE IV SCH ×2 (09:26→18:52)
[2018-11-10] MEDS: LORAZEPAM 2MG/ML CPJ IV PRN (09:53)
[2018-11-10] MEDS: INSULIN GLARGINE UD 100 UNITS/ML SYR SUBCUT SCH ×2 (10:02→22:34)
[2018-11-10 10:27] LABS: INR 1.4; PROTHROMBIN TIME 13.6 sec (9.1-11.1)
[2018-11-10 10:27] LABS: PLATELET 221 x1000/uL (130-400)
[2018-11-10] MEDS ORDERED: DEXTROSE 50% WATER 50ML SYRINGE IV PRN (10:30)
[2018-11-10 10:51] LABS: BG BASE EXCESS -4.4 mmol/L (-2.0-2.0); BG CARBOXYHEMOGLOBIN 0.3 % (0.5-1.5); BG DEOXYHEMOGLOBIN 3.3 % (0.0-5.0); BG FRACTION INSPIRED OXYGEN 70; BG HCO3 ACT 21.5 mmol/L (22.0-26.0); BG METHEMOGLOBIN 0.1 % (0.0-1.5); BG OXYGEN SATURATION 96.7 % (92.0-98.5); BG OXYHEMOGLOBIN 96.3 % (94.0-97.0); BG PCO2 42.9 mmHg (35.0-45.0); BG PEEP (cmH2O) 0 cmH2O; BG PH 7.318 (7.350-7.450); BG PO2 102.2 mmHg (75.0-100.0); BG SAMPLE SITE RIGHT RADIAL; BG TIDAL VOLUME(mL) 500 mL; BG TOTAL HEMOGLOBIN 9.1 g/dL (12.0-18.0); BG VENT MODE VENT - A/C; BG VENT RATE 20 set
[2018-11-10] MEDS ORDERED: LIDOCAINE HCL 1% 20ML VIAL (Pyxis) INJ ONE (10:54)
[2018-11-10] MEDS: VANCOMYCIN 750 MG PREMIX 150 ML IV SCH (11:43)
[2018-11-10] MEDS ORDERED: INSULIN GLARGINE UD 100 UNITS/ML SYR SUBCUT SCH (12:00)
[2018-11-10 12:45] LABS: HEPATITIS B SURFACE ANTIGEN NEGATIVE
[2018-11-10 13:26] LABS: HEPATITIS A AB IGM NEGATIVE (NEGATIVE)
[2018-11-10] MEDS: LACTULOSE 20G/30ML UDC NG SCH ×2 (13:48→22:33)
[2018-11-10] MEDS: ENOXAPARIN 30MG/0.3ML SYR SUBCUT SCH (15:07)
[2018-11-10] MEDS: ASPIRIN 325MG EC TABLET PO SCH (15:07)
[2018-11-10] MEDS ORDERED: INSULIN LISPRO 100 UNITS/ML SUBCUT NR (17:51)
[2018-11-10] MEDS ORDERED: INSULIN GLARGINE UD 100 UNITS/ML SYR SUBCUT NR (18:00)
[2018-11-10] MEDS ORDERED: PHENYLEPHRINE 40 MG in DEXT 5% WATER 496 ML IV PRN (19:30)
[2018-11-11] VITALS (93 sets, daily range): BP systolic 99–152; BP diastolic 50–94
[2018-11-11] MEDS: IPRATROPIUM/ALBUTEROL 0.5-3(2.5)MG/3ML NEB HHN SCH ×6 (00:23→20:51)
[2018-11-11] MEDS: INSULIN LISPRO 100 UNITS/ML SUBCUT SCH ×5 (00:26→23:33)
[2018-11-11] MEDS: NACL IV SCH ×3 (03:36→19:58)
[2018-11-11] MEDS: DEXT IV SCH ×3 (03:36→19:58)
[2018-11-11] MEDS: SODIUM BICARBONATE IV SCH ×3 (03:36→19:58)
[2018-11-11] MEDS: NOREPINEPHRINE 8 MG in DEXT 5% WATER 242 ML IV PRN (03:49)
[2018-11-11] MEDS: BLOOD SUGAR DIAGNOSTIC STRIP TEST SCH ×4 (05:27→23:29)
[2018-11-11] MEDS: LACTULOSE 20G/30ML UDC NG SCH ×3 (05:34→21:03)
[2018-11-11 05:54] LABS: CHLORIDE 101 mEq/L (98-107)
[2018-11-11 05:59] LABS: HEMATOCRIT. 25.8 % (42.0-52.0); HEMOGLOBIN. 8.2 g/dL (14.0-18.0); MEAN CORPUSCULAR HEMOGLOBIN 26.7 pg (28.0-32.0); MEAN CORPUSCULAR VOLUME 83.5 fL (80.0-94.0); MEAN PLATELET VOLUME 9.8 fl (7.4-10.4); PLATELET 140 x1000/uL (130-400); RED BLOOD CELL COUNT 3.09 mill/uL (4.7-6.1)
[2018-11-11] MEDS ORDERED: INSULIN GLARGINE UD 100 UNITS/ML SYR SUBCUT SCH (06:00)
[2018-11-11 06:05] LABS: CREATINE KINASE 855 IU/L (39-308)
[2018-11-11] MEDS: MEROPENEM 1,000 MG in SODIUM CHLORIDE 0.9% 100 ML IV SCH (09:08)
[2018-11-11] MEDS: ASPIRIN 325MG EC TABLET PO SCH (09:08)
[2018-11-11] MEDS: ENOXAPARIN 30MG/0.3ML SYR SUBCUT SCH (09:09)
[2018-11-11] MEDS: INSULIN GLARGINE UD 100 UNITS/ML SYR SUBCUT SCH ×2 (09:09→21:04)
[2018-11-11 09:28] LABS: BG BASE EXCESS -3.4 mmol/L (-2.0-2.0); BG CARBOXYHEMOGLOBIN 0.5 % (0.5-1.5); BG DEOXYHEMOGLOBIN 1.5 % (0.0-5.0); BG FRACTION INSPIRED OXYGEN 70; BG HCO3 ACT 21.2 mmol/L (22.0-26.0); BG METHEMOGLOBIN 0.4 % (0.0-1.5); BG OXYGEN SATURATION 98.5 % (92.0-98.5); BG OXYHEMOGLOBIN 97.6 % (94.0-97.0); BG PCO2 36.3 mmHg (35.0-45.0); BG PH 7.385 (7.350-7.450); BG PO2 120.9 mmHg (75.0-100.0); BG SAMPLE SITE RIGHT RADIAL; BG TIDAL VOLUME(mL) 500 mL; BG VENT MODE VENT - A/C; BG VENT RATE 20 set
[2018-11-11] MEDS: PANTOPRAZOLE SODIUM 40 MG/VIAL IV SCH (09:44)
[2018-11-11 10:42] LABS: NUCLEATED RED BLOOD CELLS 2 /100 WBC; PLATELET ESTIMATE NORMAL
[2018-11-11] MEDS ORDERED: PHENYLEPHRINE 40 MG in SODIUM CHLORIDE 0.9% 496 ML IV PRN (15:06)
[2018-11-11] MEDS ORDERED: MIDAZOLAM HCL 50 MG in SODIUM CHLORIDE 0.9% 40 ML IV PRN (15:12)
[2018-11-12] VITALS (64 sets, daily range): BP systolic 108–165; BP diastolic 68–121
[2018-11-12] MEDS: IPRATROPIUM/ALBUTEROL 0.5-3(2.5)MG/3ML NEB HHN SCH ×6 (00:34→20:36)
[2018-11-12] MEDS: DEXT IV SCH ×3 (05:01→21:00)
[2018-11-12] MEDS: SODIUM BICARBONATE IV SCH ×3 (05:01→21:00)
[2018-11-12] MEDS: NACL IV SCH ×3 (05:01→21:00)
[2018-11-12] MEDS: LACTULOSE 20G/30ML UDC NG SCH ×2 (05:09→13:29)
[2018-11-12] MEDS: BLOOD SUGAR DIAGNOSTIC STRIP TEST SCH ×3 (05:09→17:22)
[2018-11-12] MEDS: INSULIN LISPRO 100 UNITS/ML SUBCUT SCH ×3 (05:10→17:22)
[2018-11-12 05:39] LABS: HEMATOCRIT. 26.6 % (42.0-52.0); HEMOGLOBIN. 8.5 g/dL (14.0-18.0); MEAN CORPUSCULAR VOLUME 84.6 fL (80.0-94.0); MEAN PLATELET VOLUME 9.2 fl (7.4-10.4); PLATELET 98 x1000/uL (130-400); RED BLOOD CELL COUNT 3.15 mill/uL (4.7-6.1); RED CELL DISTRIBUTION WIDTH 15.2 % (11.6-14.6)
[2018-11-12] MEDS: PANTOPRAZOLE SODIUM 40 MG/VIAL IV SCH (08:30)
[2018-11-12] MEDS: MEROPENEM 1,000 MG in SODIUM CHLORIDE 0.9% 100 ML IV SCH (08:30)
[2018-11-12 08:44] LABS: ATYPICAL LYMPHOCYTES 1
[2018-11-12 08:45] LABS: PLATELET ESTIMATE SLIGHTLY DECREASED
[2018-11-12] MEDS: ENOXAPARIN 30MG/0.3ML SYR SUBCUT SCH (09:00)
[2018-11-12] MEDS: ASPIRIN 325MG EC TABLET PO SCH (09:00)
[2018-11-12 10:18] LABS: BG BASE EXCESS -1.5 mmol/L (-2.0-2.0); BG CARBOXYHEMOGLOBIN 0.3 % (0.5-1.5); BG DEOXYHEMOGLOBIN 2.5 % (0.0-5.0); BG FRACTION INSPIRED OXYGEN 50; BG HCO3 ACT 22.7 mmol/L (22.0-26.0); BG METHEMOGLOBIN 0.5 % (0.0-1.5); BG OXYGEN SATURATION 97.5 % (92.0-98.5); BG OXYHEMOGLOBIN 96.7 % (94.0-97.0); BG PCO2 36.1 mmHg (35.0-45.0); BG PH 7.416 (7.350-7.450); BG PO2 106.7 mmHg (75.0-100.0); BG SAMPLE SITE RIGHT RADIAL; BG TIDAL VOLUME(mL) 500 mL; BG TOTAL HEMOGLOBIN 9.4 g/dL (12.0-18.0); BG VENT MODE VENT - A/C; BG VENT RATE 20 set
[2018-11-12] MEDS: INSULIN GLARGINE UD 100 UNITS/ML SYR SUBCUT SCH ×2 (10:35→22:09)
[2018-11-12] MEDS: ASPIRIN 81MG TABLET PO SCH (12:00)
[2018-11-12] MEDS: METRONIDAZOLE 500MG TABLET PO SCH (20:44)
[2018-11-13] VITALS (42 sets, daily range): BP systolic 107–145; BP diastolic 62–109
[2018-11-13] MEDS: IPRATROPIUM/ALBUTEROL 0.5-3(2.5)MG/3ML NEB HHN SCH ×7 (00:10→16:00)
[2018-11-13] MEDS: LORAZEPAM 2MG/ML CPJ IV PRN (00:34)
[2018-11-13] MEDS: SODIUM BICARBONATE IV SCH (05:05)
[2018-11-13] MEDS: DEXT IV SCH (05:05)
[2018-11-13] MEDS: NACL IV SCH (05:05)
[2018-11-13] MEDS: INSULIN LISPRO 100 UNITS/ML SUBCUT SCH ×4 (05:15→17:32)
[2018-11-13] MEDS: BLOOD SUGAR DIAGNOSTIC STRIP TEST SCH ×4 (05:15→17:32)
[2018-11-13 05:33] LABS: HEMATOCRIT. 24.1 % (42.0-52.0); MEAN CORPUSCULAR HEMOGLOBIN 27.1 pg (28.0-32.0); MEAN PLATELET VOLUME 10.4 fl (7.4-10.4); PLATELET 89 x1000/uL (130-400); RED BLOOD CELL COUNT 2.94 mill/uL (4.7-6.1); RED CELL DISTRIBUTION WIDTH 14.8 % (11.6-14.6)
[2018-11-13 05:40] LABS: CHLORIDE 110 mEq/L (98-107)
[2018-11-13 07:25] LABS: NUCLEATED RED BLOOD CELLS 1 /100 WBC; PLATELET ESTIMATE DECREAS
[2018-11-13] MEDS: PANTOPRAZOLE SODIUM 40 MG/VIAL IV SCH (08:02)
[2018-11-13] MEDS: ASPIRIN 81MG TABLET PO SCH (08:03)
[2018-11-13] MEDS: CEFTRIAXONE 2 G in DEXTROSE 5% WATER 50 ML IV SCH (08:03)
[2018-11-13] MEDS: METRONIDAZOLE 500MG TABLET PO SCH ×2 (08:03→21:53)
[2018-11-13] MEDS ORDERED: CEFTRIAXONE 2 G PREMIX 50 ML IV SCH (09:00)
[2018-11-13] MEDS: ENOXAPARIN 30MG/0.3ML SYR SUBCUT SCH (09:00)
[2018-11-13 09:29] LABS: BG BASE EXCESS 0.8 mmol/L (-2.0-2.0); BG CARBOXYHEMOGLOBIN 0.2 % (0.5-1.5); BG DEOXYHEMOGLOBIN 1.8 % (0.0-5.0); BG FRACTION INSPIRED OXYGEN 50; BG HCO3 ACT 24.4 mmol/L (22.0-26.0); BG METHEMOGLOBIN 0.5 % (0.0-1.5); BG OXYGEN SATURATION 98.2 % (92.0-98.5); BG OXYHEMOGLOBIN 97.5 % (94.0-97.0); BG PCO2 34.9 mmHg (35.0-45.0); BG PH 7.463 (7.350-7.450); BG PO2 113.3 mmHg (75.0-100.0); BG SAMPLE SITE LEFT RADIAL; BG TIDAL VOLUME(mL) 500 mL; BG TOTAL HEMOGLOBIN 8.5 g/dL (12.0-18.0); BG VENT MODE VENT - A/C; BG VENT RATE 20 set
[2018-11-13] MEDS: INSULIN GLARGINE UD 100 UNITS/ML SYR SUBCUT SCH ×2 (10:00→21:54)
[2018-11-13] MEDS ORDERED: FUROSEMIDE 40MG/4ML VIAL IVP NR (10:00)
[2018-11-13 10:17] LABS: CREATINE KINASE 106 IU/L (39-308)
[2018-11-13 11:56] LABS: INR 1.2; PROTHROMBIN TIME 11.9 sec (9.1-11.1)
[2018-11-13] MEDS ORDERED: DILTIAZEM HCL 5MG/ML 5ML VIAL IV PRN (12:30)
[2018-11-13] MEDS ORDERED: POTASSIUM CHLORIDE 20MEQ/PACKET NG NR (12:30)
[2018-11-13] MEDS: FERROUS SULFATE 300MG/5ML UDC PO SCH ×2 (12:44→18:50)
[2018-11-13] MEDS: DEXTROSE 50% WATER 50ML SYRINGE IV PRN (17:32)
[2018-11-13] MEDS ORDERED: DEXT 5%/0.45% NACL 1000ML 1,000 ML IV SCH (18:45)
[2018-11-13] MEDS: METOCLOPRAMIDE HCL 10MG/2ML VIAL IV SCH (18:50)
[2018-11-13] MEDS ORDERED: EPOETIN ALFA 10000UNITS/ML VIAL SUBCUT SCH (21:00)
[2018-11-14] VITALS (53 sets, daily range): BP systolic 86–137; BP diastolic 48–83
[2018-11-14] MEDS: IPRATROPIUM/ALBUTEROL 0.5-3(2.5)MG/3ML NEB HHN SCH ×8 (00:40→21:30)
[2018-11-14] MEDS ORDERED: DEXTROSE 50% WATER 50ML SYRINGE IV ONE (03:55)
[2018-11-14] MEDS: DEXTROSE 50% WATER 50ML SYRINGE IV PRN ×2 (04:06→06:31)
[2018-11-14 05:04] LABS: HEMATOCRIT. 28.5 % (42.0-52.0); HEMOGLOBIN. 9.2 g/dL (14.0-18.0); MEAN CORPUSCULAR HEMOGLOBIN 26.5 pg (28.0-32.0); MEAN CORPUSCULAR VOLUME 82.5 fL (80.0-94.0); MEAN PLATELET VOLUME 9.9 fl (7.4-10.4); PLATELET 93 x1000/uL (130-400); RED BLOOD CELL COUNT 3.46 mill/uL (4.7-6.1); RED CELL DISTRIBUTION WIDTH 15.2 % (11.6-14.6)
[2018-11-14] MEDS: INSULIN LISPRO 100 UNITS/ML SUBCUT SCH ×4 (06:00→17:16)
[2018-11-14] MEDS ORDERED: DEXT 10% WATER 1,000 ML IV SCH ×2 (06:30→06:52)
[2018-11-14] MEDS: METOCLOPRAMIDE HCL 10MG/2ML VIAL IV SCH ×4 (06:44→17:12)
[2018-11-14] MEDS: BLOOD SUGAR DIAGNOSTIC STRIP TEST SCH ×3 (06:44→12:06)
[2018-11-14 08:22] LABS: BG BASE EXCESS -1.5 mmol/L (-2.0-2.0); BG CARBOXYHEMOGLOBIN 0.3 % (0.5-1.5); BG FRACTION INSPIRED OXYGEN 40; BG HCO3 ACT 22.9 mmol/L (22.0-26.0); BG METHEMOGLOBIN 0.2 % (0.0-1.5); BG OXYHEMOGLOBIN 96.5 % (94.0-97.0); BG PCO2 37.3 mmHg (35.0-45.0); BG PH 7.406 (7.350-7.450); BG PO2 99.5 mmHg (75.0-100.0); BG SAMPLE SITE RIGHT RADIAL; BG TIDAL VOLUME(mL) 500 mL; BG TOTAL HEMOGLOBIN 9.5 g/dL (12.0-18.0); BG VENT MODE VENT - A/C; BG VENT RATE 16 set
[2018-11-14 08:42] LABS: NUCLEATED RED BLOOD CELLS 3 /100 WBC; PLATELET ESTIMATE SLIGHTLY DECREASED
[2018-11-14] MEDS ORDERED: FOLIC ACID/VITAMIN B COMP W-C TABLET PO SCH (09:00)
[2018-11-14] MEDS: ENOXAPARIN 30MG/0.3ML SYR SUBCUT SCH (09:00)
[2018-11-14] MEDS ORDERED: HEPARIN SODIUM 1,000 UNIT/1ML VIAL IV NR (09:45)
[2018-11-14] MEDS: INSULIN GLARGINE UD 100 UNITS/ML SYR SUBCUT SCH (10:00)
[2018-11-14] MEDS ORDERED: ALBUMIN HUMAN 25GM/100ML (25%) IV NR (10:10)
[2018-11-14] MEDS ORDERED: DILTIAZEM HCL 30MG TABLET PO SCH (12:00)
[2018-11-14] MEDS: CEFTRIAXONE 2 G in DEXTROSE 5% WATER 50 ML IV SCH (12:04)
[2018-11-14] MEDS: METRONIDAZOLE 500MG TABLET PO SCH (12:04)
[2018-11-14] MEDS: FERROUS SULFATE 300MG/5ML UDC PO SCH ×3 (12:05→18:20)
[2018-11-14] MEDS: PANTOPRAZOLE SODIUM 40 MG/VIAL IV SCH (12:06)
[2018-11-14] MEDS ORDERED: METRONIDAZOLE 500 MG PREMIX 100 ML IV SCH (21:00)
[2018-11-14] MEDS: METRONIDAZOLE 500 MG PREMIX 100 ML IV SCH (21:51)
[2018-11-15] VITALS (39 sets, daily range): BP systolic 104–145; BP diastolic 57–84
[2018-11-15] MEDS: METOCLOPRAMIDE HCL 10MG/2ML VIAL IV SCH ×5 (00:39→23:35)
[2018-11-15] MEDS: IPRATROPIUM/ALBUTEROL 0.5-3(2.5)MG/3ML NEB HHN SCH ×6 (00:53→20:20)
[2018-11-15] MEDS: ACETYLCYSTEINE 100MG/ML 10% VIAL 4ML INH SCH ×3 (00:54→15:27)
[2018-11-15 05:27] LABS: HEMATOCRIT. 22.8 % (42.0-52.0); HEMOGLOBIN. 7.4 g/dL (14.0-18.0); MEAN CORPUSCULAR HEMOGLOBIN 26.5 pg (28.0-32.0); MEAN CORPUSCULAR VOLUME 81.5 fL (80.0-94.0); PLATELET 80 x1000/uL (130-400); RED BLOOD CELL COUNT 2.79 mill/uL (4.7-6.1); RED CELL DISTRIBUTION WIDTH 15.2 % (11.6-14.6)
[2018-11-15 05:30] LABS: PHOSPHORUS 4.5 mg/dL (2.5-4.9)
[2018-11-15] MEDS: INSULIN LISPRO 100 UNITS/ML SUBCUT SCH ×5 (06:00→23:40)
[2018-11-15 08:43] LABS: BG BASE EXCESS 1.7 mmol/L (-2.0-2.0); BG CARBOXYHEMOGLOBIN 0.2 % (0.5-1.5); BG DEOXYHEMOGLOBIN 1.4 % (0.0-5.0); BG FRACTION INSPIRED OXYGEN 40; BG HCO3 ACT 26.5 mmol/L (22.0-26.0); BG METHEMOGLOBIN 0.7 % (0.0-1.5); BG OXYGEN SATURATION 98.6 % (92.0-98.5); BG OXYHEMOGLOBIN 97.7 % (94.0-97.0); BG PCO2 42.7 mmHg (35.0-45.0); BG PH 7.411 (7.350-7.450); BG PO2 132.2 mmHg (75.0-100.0); BG SAMPLE SITE RIGHT RADIAL; BG TIDAL VOLUME(mL) 500 mL; BG TOTAL HEMOGLOBIN 8.6 g/dL (12.0-18.0); BG VENT MODE VENT - A/C; BG VENT RATE 16 set
[2018-11-15] MEDS: FERROUS SULFATE 300MG/5ML UDC PO SCH ×3 (08:53→18:50)
[2018-11-15] MEDS: METRONIDAZOLE 500 MG PREMIX 100 ML IV SCH ×2 (08:53→20:45)
[2018-11-15] MEDS: PANTOPRAZOLE SODIUM 40 MG/VIAL IV SCH (08:53)
[2018-11-15] MEDS ORDERED: CEFTRIAXONE 2 G in DEXTROSE 5% WATER 50 ML IV SCH (09:00)
[2018-11-15] MEDS ORDERED: CEFTRIAXONE 2 G PREMIX 50 ML IV SCH (09:00)
[2018-11-15] MEDS ORDERED: MEROPENEM 1,000 MG in SODIUM CHLORIDE 0.9% 100 ML IV SCH (09:15)
[2018-11-15] MEDS: DEXTROSE 5% WATER 1,000 ML IV SCH (10:19)
[2018-11-15] MEDS: MEROPENEM 500MG in NORMAL SALINE 50ML IV SCH (11:23)
[2018-11-15 15:15] LABS: NUCLEATED RED BLOOD CELLS 5 /100 WBC
[2018-11-15 15:16] LABS: PLATELET ESTIMATE DECREASED
[2018-11-15] MEDS: LACTULOSE 20G/30ML UDC PO SCH ×2 (15:21→20:45)
[2018-11-15 20:09] LABS: HEMATOCRIT 24.9 % (42.0-52.0); MEAN CORPUSCULAR HEMOGLOBIN 26.4 pg (28.0-32.0); MEAN CORPUSCULAR VOLUME 82.7 fL (80.0-94.0); PLATELET 82 x1000/uL (130-400); RED BLOOD CELL COUNT 3.02 mill/uL (4.7-6.1); RED CELL DISTRIBUTION WIDTH 15.2 % (11.6-14.6)
[2018-11-16] VITALS (47 sets, daily range): BP systolic 107–137; BP diastolic 45–81
[2018-11-16] MEDS: ACETYLCYSTEINE 100MG/ML 10% VIAL 4ML INH SCH ×3 (00:08→15:28)
[2018-11-16] MEDS: IPRATROPIUM/ALBUTEROL 0.5-3(2.5)MG/3ML NEB HHN SCH ×6 (00:09→20:49)
[2018-11-16 05:22] LABS: HEMOGLOBIN. 7.2 g/dL (14.0-18.0); MEAN CORPUSCULAR HEMOGLOBIN 26.4 pg (28.0-32.0); MEAN CORPUSCULAR VOLUME 81.1 fL (80.0-94.0); MEAN PLATELET VOLUME 10.1 fl (7.4-10.4); PLATELET 75 x1000/uL (130-400); RED BLOOD CELL COUNT 2.71 mill/uL (4.7-6.1); RED CELL DISTRIBUTION WIDTH 15.1 % (11.6-14.6)
[2018-11-16] MEDS: METOCLOPRAMIDE HCL 10MG/2ML VIAL IV SCH ×4 (05:25→23:18)
[2018-11-16] MEDS: INSULIN LISPRO 100 UNITS/ML SUBCUT SCH ×4 (05:26→23:32)
[2018-11-16] MEDS: LACTULOSE 20G/30ML UDC PO SCH ×3 (05:26→21:35)
[2018-11-16 08:02] LABS: BG BASE EXCESS -0.9 mmol/L (-2.0-2.0); BG CARBOXYHEMOGLOBIN 0.1 % (0.5-1.5); BG DEOXYHEMOGLOBIN 1.7 % (0.0-5.0); BG FRACTION INSPIRED OXYGEN 35; BG HCO3 ACT 23.3 mmol/L (22.0-26.0); BG METHEMOGLOBIN 0.6 % (0.0-1.5); BG OXYGEN SATURATION 98.3 % (92.0-98.5); BG OXYHEMOGLOBIN 97.6 % (94.0-97.0); BG PH 7.428 (7.350-7.450); BG PO2 132.3 mmHg (75.0-100.0); BG SAMPLE SITE RIGHT RADIAL; BG TIDAL VOLUME(mL) 500 mL; BG VENT MODE VENT - A/C; BG VENT RATE 16 set
[2018-11-16 08:58] LABS: PLATELET ESTIMATE DECREASED
[2018-11-16] MEDS ORDERED: CEFTRIAXONE 2 G in DEXTROSE 5% WATER 50 ML IV SCH (09:00)
[2018-11-16] MEDS: FERROUS SULFATE 300MG/5ML UDC PO SCH ×3 (10:17→17:56)
[2018-11-16] MEDS: PANTOPRAZOLE SODIUM 40 MG/VIAL IV SCH (10:18)
[2018-11-16] MEDS: MEROPENEM 500MG in NORMAL SALINE 50ML IV SCH (10:18)
[2018-11-16] MEDS: METRONIDAZOLE 500 MG PREMIX 100 ML IV SCH ×2 (11:01→21:35)
[2018-11-16] MEDS: DEXTROSE 5% WATER 1,000 ML IV SCH (11:02)
[2018-11-16] MEDS: BLOOD SUGAR DIAGNOSTIC STRIP TEST SCH (23:41)
[2018-11-16] MEDS ORDERED: DEXTROSE 50% WATER 50ML SYRINGE IV PRN (23:45)
[2018-11-17] VITALS (65 sets, daily range): BP systolic 81–144; BP diastolic 50–82
[2018-11-17] MEDS: ACETYLCYSTEINE 100MG/ML 10% VIAL 4ML INH SCH ×3 (00:42→16:05)
[2018-11-17] MEDS: IPRATROPIUM/ALBUTEROL 0.5-3(2.5)MG/3ML NEB HHN SCH ×6 (00:43→21:10)
[2018-11-17] MEDS: BLOOD SUGAR DIAGNOSTIC STRIP TEST SCH ×3 (05:16→18:41)
[2018-11-17] MEDS: METOCLOPRAMIDE HCL 10MG/2ML VIAL IV SCH ×3 (05:20→18:33)
[2018-11-17] MEDS: LACTULOSE 20G/30ML UDC PO SCH ×3 (05:20→21:18)
[2018-11-17] MEDS: INSULIN LISPRO 100 UNITS/ML SUBCUT SCH ×3 (05:21→18:00)
[2018-11-17 06:14] LABS: HEMATOCRIT. 34.2 % (42.0-52.0); HEMOGLOBIN. 11.1 g/dL (14.0-18.0); MEAN CORPUSCULAR HEMOGLOBIN 26.7 pg (28.0-32.0); MEAN CORPUSCULAR VOLUME 81.9 fL (80.0-94.0); PLATELET 70 x1000/uL (130-400); RED BLOOD CELL COUNT 4.17 mill/uL (4.7-6.1); RED CELL DISTRIBUTION WIDTH 16.2 % (11.6-14.6)
[2018-11-17 08:00] LABS: PLATELET ESTIMATE DECREASED
[2018-11-17 08:49] LABS: BG BASE EXCESS -1.7 mmol/L (-2.0-2.0); BG CARBOXYHEMOGLOBIN 0.8 % (0.5-1.5); BG DEOXYHEMOGLOBIN 2.5 % (0.0-5.0); BG FRACTION INSPIRED OXYGEN 30; BG HCO3 ACT 22.9 mmol/L (22.0-26.0); BG METHEMOGLOBIN 0.6 % (0.0-1.5); BG OXYGEN SATURATION 97.5 % (92.0-98.5); BG OXYHEMOGLOBIN 96.1 % (94.0-97.0); BG PH 7.397 (7.350-7.450); BG SAMPLE SITE LEFT RADIAL; BG TIDAL VOLUME(mL) 500 mL; BG TOTAL HEMOGLOBIN 11.3 g/dL (12.0-18.0); BG VENT MODE VENT - A/C; BG VENT RATE 16 set
[2018-11-17] MEDS: PANTOPRAZOLE SODIUM 40 MG/VIAL IV SCH (08:54)
[2018-11-17] MEDS: METRONIDAZOLE 500 MG PREMIX 100 ML IV SCH ×2 (08:54→21:18)
[2018-11-17] MEDS: FERROUS SULFATE 300MG/5ML UDC PO SCH ×3 (08:54→18:33)
[2018-11-17] MEDS: MEROPENEM 500MG in NORMAL SALINE 50ML IV SCH (10:30)
[2018-11-17] MEDS ORDERED: NOREPINEPHRINE 4MG/250ML PMX 250 ML IV ONE (12:15)
[2018-11-17] MEDS ORDERED: NOREPINEPHRINE 4 MG in DEXTROSE 5% WATER 250 ML IV PRN (13:00)
[2018-11-17] MEDS ORDERED: NOREPINEPHRINE 16 MG in DEXT 5% WATER 234 ML IV PRN (13:00)
[2018-11-17] MEDS: DEXTROSE 5% WATER 1,000 ML IV SCH (13:38)
[2018-11-17] MEDS ORDERED: EPOETIN ALFA 4000UNITS/ML VIAL SUBCUT SCH (21:00)
[2018-11-18] VITALS (45 sets, daily range): BP systolic 112–155; BP diastolic 57–95
[2018-11-18] MEDS: BLOOD SUGAR DIAGNOSTIC STRIP TEST SCH ×5 (00:30→23:38)
[2018-11-18] MEDS: INSULIN LISPRO 100 UNITS/ML SUBCUT SCH ×5 (00:38→23:38)
[2018-11-18] MEDS: METOCLOPRAMIDE HCL 10MG/2ML VIAL IV SCH ×5 (00:38→23:35)
[2018-11-18] MEDS: IPRATROPIUM/ALBUTEROL 0.5-3(2.5)MG/3ML NEB HHN SCH ×6 (00:48→20:45)
[2018-11-18] MEDS: ACETYLCYSTEINE 100MG/ML 10% VIAL 4ML INH SCH ×3 (00:49→17:02)
[2018-11-18] MEDS: LACTULOSE 20G/30ML UDC PO SCH ×2 (05:34→13:00)
[2018-11-18 06:55] LABS: BASOPHILS % 0.1 % (0.0-2.0); EOSINOPHILS % 0.4 % (0.0-5.0); HEMATOCRIT. 30.8 % (42.0-52.0); HEMOGLOBIN. 10.1 g/dL (14.0-18.0); LYMPHOCYTES % 7.6 % (20.0-50.0); MEAN CORPUSCULAR HEMOGLOBIN 26.7 pg (28.0-32.0); MEAN CORPUSCULAR VOLUME 81.2 fL (80.0-94.0); MEAN PLATELET VOLUME 11.3 fl (7.4-10.4); MONOCYTES % 3.5 % (2.0-8.0); NEUTROPHILS % 88.4 % (40.0-76.0); PLATELET 82 x1000/uL (130-400); RED BLOOD CELL COUNT 3.79 mill/uL (4.7-6.1); RED CELL DISTRIBUTION WIDTH 16.3 % (11.6-14.6)
[2018-11-18 07:01] LABS: CHLORIDE 99 mEq/L (98-107)
[2018-11-18 07:23] LABS: PHOSPHORUS 4.6 mg/dL (2.5-4.9)
[2018-11-18 07:34] LABS: BG BASE EXCESS -1.2 mmol/L (-2.0-2.0); BG CARBOXYHEMOGLOBIN 0.3 % (0.5-1.5); BG DEOXYHEMOGLOBIN 2.3 % (0.0-5.0); BG FRACTION INSPIRED OXYGEN 30; BG HCO3 ACT 23.4 mmol/L (22.0-26.0); BG METHEMOGLOBIN 0.3 % (0.0-1.5); BG OXYGEN SATURATION 97.7 % (92.0-98.5); BG OXYHEMOGLOBIN 97.1 % (94.0-97.0); BG PCO2 38.8 mmHg (35.0-45.0); BG PH 7.399 (7.350-7.450); BG PO2 106.9 mmHg (75.0-100.0); BG SAMPLE SITE RIGHT RADIAL; BG TIDAL VOLUME(mL) 500 mL; BG TOTAL HEMOGLOBIN 11.1 g/dL (12.0-18.0); BG VENT MODE VENT - A/C; BG VENT RATE 12 set
[2018-11-18 08:22] LABS: IMMUNOGLOBULIN A 232 mg/dL (61-437); IMMUNOGLOBULIN G 2547 mg/dL (700-1600); IMMUNOGLOBULIN M 39 mg/dL (15-143)
[2018-11-18] MEDS: PANTOPRAZOLE SODIUM 40 MG/VIAL IV SCH (08:26)
[2018-11-18] MEDS: METRONIDAZOLE 500 MG PREMIX 100 ML IV SCH ×2 (08:26→20:56)
[2018-11-18] MEDS: FERROUS SULFATE 300MG/5ML UDC PO SCH ×3 (08:26→18:21)
[2018-11-18] MEDS ORDERED: POTASSIUM CHLORIDE INJ 40 MEQ in DEXT 5% WATER 250 ML IV NR (09:00)
[2018-11-18] MEDS: MEROPENEM 500MG in NORMAL SALINE 50ML IV SCH (09:55)
[2018-11-18] MEDS: LACTOBACILLUS GG CAPSULE PO SCH (09:55)
[2018-11-18 11:38] LABS: BG BASE EXCESS -2.2 mmol/L (-2.0-2.0); BG CARBOXYHEMOGLOBIN 0.3 % (0.5-1.5); BG DEOXYHEMOGLOBIN 3.5 % (0.0-5.0); BG FRACTION INSPIRED OXYGEN 30; BG HCO3 ACT 22.2 mmol/L (22.0-26.0); BG METHEMOGLOBIN 0.4 % (0.0-1.5); BG OXYGEN SATURATION 96.5 % (92.0-98.5); BG OXYHEMOGLOBIN 95.8 % (94.0-97.0); BG PCO2 36.7 mmHg (35.0-45.0); BG PH 7.399 (7.350-7.450); BG PO2 93.1 mmHg (75.0-100.0); BG PRESSURE SUPPORT 8; BG SAMPLE SITE RIGHT RADIAL; BG TOTAL HEMOGLOBIN 11.1 g/dL (12.0-18.0); BG VENT MODE VENT - CPAP
[2018-11-18] MEDS ORDERED: DIATR MEGLU/DIATRIZOATE SOLN 30ML PO SCH (14:30)
[2018-11-19] VITALS (49 sets, daily range): BP systolic 93–153; BP diastolic 52–83
[2018-11-19] MEDS: IPRATROPIUM/ALBUTEROL 0.5-3(2.5)MG/3ML NEB HHN SCH ×5 (00:24→20:32)
[2018-11-19] MEDS: ACETYLCYSTEINE 100MG/ML 10% VIAL 4ML INH SCH ×2 (00:24→09:07)
[2018-11-19] MEDS: DEXTROSE 5% WATER 1,000 ML IV SCH ×2 (04:47→10:00)
[2018-11-19] MEDS: METOCLOPRAMIDE HCL 10MG/2ML VIAL IV SCH ×4 (05:05→23:16)
[2018-11-19] MEDS: BLOOD SUGAR DIAGNOSTIC STRIP TEST SCH ×4 (05:07→23:21)
[2018-11-19] MEDS: INSULIN LISPRO 100 UNITS/ML SUBCUT SCH ×4 (05:07→23:21)
[2018-11-19 05:54] LABS: HEMATOCRIT. 33.4 % (42.0-52.0); HEMOGLOBIN. 10.7 g/dL (14.0-18.0); MEAN CORPUSCULAR HEMOGLOBIN 26.5 pg (28.0-32.0); MEAN CORPUSCULAR VOLUME 82.4 fL (80.0-94.0); MEAN PLATELET VOLUME 10.8 fl (7.4-10.4); PLATELET 98 x1000/uL (130-400); RED BLOOD CELL COUNT 4.06 mill/uL (4.7-6.1); RED CELL DISTRIBUTION WIDTH 16.6 % (11.6-14.6)
[2018-11-19] MEDS: FERROUS SULFATE 300MG/5ML UDC PO SCH ×3 (08:12→17:34)
[2018-11-19] MEDS: PANTOPRAZOLE SODIUM 40 MG/VIAL IV SCH (08:12)
[2018-11-19] MEDS: LACTOBACILLUS GG CAPSULE PO SCH (08:12)
[2018-11-19] MEDS: METRONIDAZOLE 500 MG PREMIX 100 ML IV SCH ×2 (08:13→20:35)
[2018-11-19] MEDS ORDERED: LACTULOSE 20G/30ML UDC PO SCH (09:00)
[2018-11-19 10:03] LABS: PLATELET ESTIMATE DECREASED
[2018-11-19] MEDS ORDERED: HEPARIN SODIUM 1,000 UNIT/1ML VIAL IV NR (10:15)
[2018-11-19] MEDS ORDERED: DIATR MEGLU/DIATRIZOATE SOLN 30ML PO NR (10:30)
[2018-11-19] MEDS: MEROPENEM 500MG in NORMAL SALINE 50ML IV SCH (10:40)
[2018-11-20] VITALS (24 sets, daily range): BP systolic 93–144; BP diastolic 50–86
[2018-11-20] MEDS: IPRATROPIUM/ALBUTEROL 0.5-3(2.5)MG/3ML NEB HHN SCH ×5 (00:33→20:42)
[2018-11-20] MEDS: METOCLOPRAMIDE HCL 10MG/2ML VIAL IV SCH ×3 (05:14→17:50)
[2018-11-20] MEDS: INSULIN LISPRO 100 UNITS/ML SUBCUT SCH ×3 (05:25→17:41)
[2018-11-20] MEDS: BLOOD SUGAR DIAGNOSTIC STRIP TEST SCH ×3 (05:25→17:41)
[2018-11-20 05:30] LABS: HEMATOCRIT. 33.3 % (42.0-52.0); HEMOGLOBIN. 10.7 g/dL (14.0-18.0); MEAN CORPUSCULAR HEMOGLOBIN 26.4 pg (28.0-32.0); MEAN CORPUSCULAR VOLUME 82.4 fL (80.0-94.0); MEAN PLATELET VOLUME 10.7 fl (7.4-10.4); PLATELET 102 x1000/uL (130-400); RED BLOOD CELL COUNT 4.05 mill/uL (4.7-6.1)
[2018-11-20 07:48] LABS: PLATELET ESTIMATE DECREASED
[2018-11-20] MEDS: DEXTROSE 5% WATER 1,000 ML IV SCH (07:56)
[2018-11-20] MEDS: LACTOBACILLUS GG CAPSULE PO SCH (09:21)
[2018-11-20] MEDS: PANTOPRAZOLE SODIUM 40 MG/VIAL IV SCH (09:21)
[2018-11-20] MEDS: FERROUS SULFATE 300MG/5ML UDC PO SCH ×3 (09:21→17:50)
[2018-11-20] MEDS: METRONIDAZOLE 500 MG PREMIX 100 ML IV SCH ×2 (09:24→21:35)
[2018-11-20] MEDS: MEROPENEM 500MG in NORMAL SALINE 50ML IV SCH (10:32)
[2018-11-21] VITALS (11 sets, daily range): BP systolic 110–137; BP diastolic 62–74
[2018-11-21] MEDS: IPRATROPIUM/ALBUTEROL 0.5-3(2.5)MG/3ML NEB HHN SCH ×6 (00:33→20:20)
[2018-11-21] MEDS: BLOOD SUGAR DIAGNOSTIC STRIP TEST SCH ×4 (00:39→17:52)
[2018-11-21] MEDS: METOCLOPRAMIDE HCL 10MG/2ML VIAL IV SCH ×5 (00:39→17:42)
[2018-11-21 04:17] LABS: KAPPA LT CHAINS FREE SERUM 2327.2 mg/L (3.3-19.4); KAPPA/LAMBDA RATIO 22.51 (0.26-1.65); LAMBDA LT CHAINS FREE SERUM 103.4 mg/L (5.7-26.3)
[2018-11-21 05:39] LABS: BASOPHILS % 0.4 % (0.0-2.0); EOSINOPHILS % 0.3 % (0.0-5.0); HEMATOCRIT. 34.8 % (42.0-52.0); HEMOGLOBIN. 11.4 g/dL (14.0-18.0); LYMPHOCYTES % 12.3 % (20.0-50.0); MEAN CORPUSCULAR HEMOGLOBIN 26.9 pg (28.0-32.0); MEAN CORPUSCULAR VOLUME 82.2 fL (80.0-94.0); MEAN PLATELET VOLUME 10.7 fl (7.4-10.4); MONOCYTES % 4.2 % (2.0-8.0); NEUTROPHILS % 82.8 % (40.0-76.0); PLATELET 106 x1000/uL (130-400); RED BLOOD CELL COUNT 4.23 mill/uL (4.7-6.1); RED CELL DISTRIBUTION WIDTH 17.1 % (11.6-14.6)
[2018-11-21] MEDS: INSULIN LISPRO 100 UNITS/ML SUBCUT SCH ×4 (06:00→17:52)
[2018-11-21] MEDS: METRONIDAZOLE 500 MG PREMIX 100 ML IV SCH ×2 (08:54→20:16)
[2018-11-21] MEDS: FERROUS SULFATE 300MG/5ML UDC PO SCH ×3 (08:54→17:42)
[2018-11-21] MEDS: PANTOPRAZOLE SODIUM 40 MG/VIAL IV SCH (08:54)
[2018-11-21] MEDS: LACTOBACILLUS GG CAPSULE PO SCH (08:54)
[2018-11-21] MEDS: MEROPENEM 500MG in NORMAL SALINE 50ML IV SCH (13:07)
[2018-11-22] VITALS (12 sets, daily range): BP systolic 116–136; BP diastolic 62–72
[2018-11-22] MEDS: METOCLOPRAMIDE HCL 10MG/2ML VIAL IV SCH ×4 (00:42→17:27)
[2018-11-22] MEDS: BLOOD SUGAR DIAGNOSTIC STRIP TEST SCH ×4 (00:51→17:27)
[2018-11-22] MEDS: IPRATROPIUM/ALBUTEROL 0.5-3(2.5)MG/3ML NEB HHN SCH ×5 (02:15→21:10)
[2018-11-22] MEDS: INSULIN LISPRO 100 UNITS/ML SUBCUT SCH ×4 (06:00→17:27)
[2018-11-22 06:51] LABS: HEMATOCRIT. 32.9 % (42.0-52.0); HEMOGLOBIN. 10.6 g/dL (14.0-18.0); MEAN CORPUSCULAR HEMOGLOBIN 26.6 pg (28.0-32.0); PLATELET 130 x1000/uL (130-400); RED BLOOD CELL COUNT 4.01 mill/uL (4.7-6.1); RED CELL DISTRIBUTION WIDTH 16.8 % (11.6-14.6)
[2018-11-22] MEDS: FERROUS SULFATE 300MG/5ML UDC PO SCH ×3 (08:26→17:28)
[2018-11-22] MEDS: PANTOPRAZOLE SODIUM 40 MG/VIAL IV SCH (08:26)
[2018-11-22] MEDS: LACTOBACILLUS GG CAPSULE PO SCH (08:26)
[2018-11-22 09:18] LABS: PHOSPHORUS 5.8 mg/dL (2.5-4.9)
[2018-11-22] MEDS: MEROPENEM 500MG in NORMAL SALINE 50ML IV SCH (12:56)
[2018-11-22 13:25] LABS: PLATELET ESTIMATE NORMAL
[2018-11-23] VITALS (12 sets, daily range): BP systolic 107–125; BP diastolic 60–76
[2018-11-23] MEDS: BLOOD SUGAR DIAGNOSTIC STRIP TEST SCH ×4 (00:09→17:28)
[2018-11-23] MEDS: METOCLOPRAMIDE HCL 10MG/2ML VIAL IV SCH ×4 (01:20→18:11)
[2018-11-23] MEDS: IPRATROPIUM/ALBUTEROL 0.5-3(2.5)MG/3ML NEB HHN SCH ×6 (02:25→20:18)
[2018-11-23] MEDS: INSULIN LISPRO 100 UNITS/ML SUBCUT SCH ×4 (05:31→18:00)
[2018-11-23 06:22] LABS: BASOPHILS % 0.2 % (0.0-2.0); EOSINOPHILS % 0.1 % (0.0-5.0); HEMATOCRIT. 32.1 % (42.0-52.0); HEMOGLOBIN. 10.6 g/dL (14.0-18.0); LYMPHOCYTES % 9.4 % (20.0-50.0); MEAN CORPUSCULAR HEMOGLOBIN 26.8 pg (28.0-32.0); MEAN CORPUSCULAR VOLUME 81.5 fL (80.0-94.0); MEAN PLATELET VOLUME 10.8 fl (7.4-10.4); MONOCYTES % 5.4 % (2.0-8.0); NEUTROPHILS % 84.9 % (40.0-76.0); PLATELET 141 x1000/uL (130-400); RED BLOOD CELL COUNT 3.94 mill/uL (4.7-6.1); RED CELL DISTRIBUTION WIDTH 17.2 % (11.6-14.6)
[2018-11-23] MEDS: FERROUS SULFATE 300MG/5ML UDC PO SCH ×3 (07:20→17:20)
[2018-11-23] MEDS: LACTOBACILLUS GG CAPSULE PO SCH (09:00)
[2018-11-23] MEDS: PANTOPRAZOLE SODIUM 40 MG/VIAL IV SCH (09:11)
[2018-11-23] MEDS: ENOXAPARIN 30MG/0.3ML SYR SUBCUT SCH (11:39)
[2018-11-24] VITALS (23 sets, daily range): BP systolic 103–133; BP diastolic 58–76
[2018-11-24] MEDS: IPRATROPIUM/ALBUTEROL 0.5-3(2.5)MG/3ML NEB HHN SCH ×7 (00:22→23:49)
[2018-11-24] MEDS: METOCLOPRAMIDE HCL 10MG/2ML VIAL IV SCH ×5 (01:03→23:38)
[2018-11-24] MEDS: INSULIN LISPRO 100 UNITS/ML SUBCUT SCH ×5 (01:04→23:33)
[2018-11-24] MEDS: BLOOD SUGAR DIAGNOSTIC STRIP TEST SCH ×5 (01:04→23:32)
[2018-11-24] MEDS: FERROUS SULFATE 300MG/5ML UDC PO SCH ×3 (06:07→16:36)
[2018-11-24 06:52] LABS: BASOPHILS % 0.2 % (0.0-2.0); EOSINOPHILS % 0.2 % (0.0-5.0); HEMATOCRIT. 30.6 % (42.0-52.0); HEMOGLOBIN. 9.9 g/dL (14.0-18.0); LYMPHOCYTES % 10.4 % (20.0-50.0); MEAN CORPUSCULAR HEMOGLOBIN 26.6 pg (28.0-32.0); MEAN CORPUSCULAR VOLUME 81.8 fL (80.0-94.0); MEAN PLATELET VOLUME 10.7 fl (7.4-10.4); MONOCYTES % 7.3 % (2.0-8.0); NEUTROPHILS % 81.9 % (40.0-76.0); PLATELET 151 x1000/uL (130-400); RED BLOOD CELL COUNT 3.74 mill/uL (4.7-6.1); RED CELL DISTRIBUTION WIDTH 17.4 % (11.6-14.6)
[2018-11-24] MEDS: LACTOBACILLUS GG CAPSULE PO SCH (08:34)
[2018-11-24] MEDS: PANTOPRAZOLE SODIUM 40 MG/VIAL IV SCH (08:34)
[2018-11-24] MEDS ORDERED: SODIUM BICARBONATE 4% (2.4MEQ) 5ML VIAL IV ONE (10:15)
[2018-11-24] MEDS ORDERED: LIDOCAINE HCL 1% 20ML VIAL (Pyxis) INJ ONE (10:15)
[2018-11-24] MEDS ORDERED: FENTANYL CITRATE/PF 50MCG/ML 2ML VIAL ONE (10:16)
[2018-11-24 13:11] LABS: INR 1.3; PARTIAL THROMBOPLASTIN TIME 47.1 sec (23.4-31.0); PROTHROMBIN TIME 13.4 sec (9.1-11.1)
[2018-11-24] MEDS: ENOXAPARIN 30MG/0.3ML SYR SUBCUT SCH (18:17)
[2018-11-25] VITALS (12 sets, daily range): BP systolic 101–122; BP diastolic 60–76
[2018-11-25] MEDS: IPRATROPIUM/ALBUTEROL 0.5-3(2.5)MG/3ML NEB HHN SCH ×5 (04:02→20:55)
[2018-11-25] MEDS: INSULIN LISPRO 100 UNITS/ML SUBCUT SCH ×3 (06:00→17:55)
[2018-11-25] MEDS: BLOOD SUGAR DIAGNOSTIC STRIP TEST SCH ×3 (06:39→17:55)
[2018-11-25] MEDS: FERROUS SULFATE 300MG/5ML UDC PO SCH ×3 (06:44→17:39)
[2018-11-25] MEDS: METOCLOPRAMIDE HCL 10MG/2ML VIAL IV SCH ×3 (06:44→17:39)
[2018-11-25 06:52] LABS: BASOPHILS % 0.5 % (0.0-2.0); EOSINOPHILS % 0.2 % (0.0-5.0); HEMATOCRIT. 30.5 % (42.0-52.0); LYMPHOCYTES % 13.8 % (20.0-50.0); MEAN CORPUSCULAR HEMOGLOBIN 26.9 pg (28.0-32.0); MEAN CORPUSCULAR VOLUME 82.2 fL (80.0-94.0); MEAN PLATELET VOLUME 10.3 fl (7.4-10.4); NEUTROPHILS % 77.5 % (40.0-76.0); PLATELET 160 x1000/uL (130-400); RED BLOOD CELL COUNT 3.71 mill/uL (4.7-6.1); RED CELL DISTRIBUTION WIDTH 17.6 % (11.6-14.6)
[2018-11-25] MEDS: ENOXAPARIN 30MG/0.3ML SYR SUBCUT SCH (08:09)
[2018-11-25] MEDS: LACTOBACILLUS GG CAPSULE PO SCH (08:09)
[2018-11-25] MEDS: PANTOPRAZOLE SODIUM 40 MG/VIAL IV SCH (08:09)
[2018-11-26] VITALS (12 sets, daily range): BP systolic 106–125; BP diastolic 63–72
[2018-11-26] MEDS: METOCLOPRAMIDE HCL 10MG/2ML VIAL IV SCH ×5 (00:09→23:40)
[2018-11-26] MEDS: BLOOD SUGAR DIAGNOSTIC STRIP TEST SCH ×5 (00:10→23:36)
[2018-11-26] MEDS: IPRATROPIUM/ALBUTEROL 0.5-3(2.5)MG/3ML NEB HHN SCH ×5 (01:15→20:39)
[2018-11-26] MEDS: INSULIN LISPRO 100 UNITS/ML SUBCUT SCH ×5 (05:10→23:37)
[2018-11-26] MEDS: FERROUS SULFATE 300MG/5ML UDC PO SCH ×3 (06:20→16:39)
[2018-11-26 06:48] LABS: BASOPHILS % 0.2 % (0.0-2.0); EOSINOPHILS % 0.2 % (0.0-5.0); HEMATOCRIT. 29.9 % (42.0-52.0); HEMOGLOBIN. 9.7 g/dL (14.0-18.0); LYMPHOCYTES % 12.6 % (20.0-50.0); MEAN CORPUSCULAR HEMOGLOBIN 26.6 pg (28.0-32.0); MEAN PLATELET VOLUME 10.2 fl (7.4-10.4); MONOCYTES % 8.3 % (2.0-8.0); NEUTROPHILS % 78.7 % (40.0-76.0); PLATELET 143 x1000/uL (130-400); RED BLOOD CELL COUNT 3.65 mill/uL (4.7-6.1); RED CELL DISTRIBUTION WIDTH 17.6 % (11.6-14.6)
[2018-11-26] MEDS: PANTOPRAZOLE SODIUM 40 MG/VIAL IV SCH (09:16)
[2018-11-26] MEDS: LACTOBACILLUS GG CAPSULE PO SCH (09:16)
[2018-11-26] MEDS: ENOXAPARIN 30MG/0.3ML SYR SUBCUT SCH (09:17)
[2018-11-27] VITALS (12 sets, daily range): BP systolic 105–130; BP diastolic 59–91
[2018-11-27] MEDS: IPRATROPIUM/ALBUTEROL 0.5-3(2.5)MG/3ML NEB HHN SCH ×5 (00:25→20:52)
[2018-11-27] MEDS: INSULIN LISPRO 100 UNITS/ML SUBCUT SCH ×3 (05:00→18:00)
[2018-11-27] MEDS: BLOOD SUGAR DIAGNOSTIC STRIP TEST SCH ×3 (05:00→18:36)
[2018-11-27] MEDS: METOCLOPRAMIDE HCL 10MG/2ML VIAL IV SCH ×3 (05:01→18:36)
[2018-11-27 06:56] LABS: BASOPHILS % 0.3 % (0.0-2.0); EOSINOPHILS % 0.4 % (0.0-5.0); HEMATOCRIT. 27.5 % (42.0-52.0); HEMOGLOBIN. 8.9 g/dL (14.0-18.0); LYMPHOCYTES % 8.8 % (20.0-50.0); MEAN CORPUSCULAR HEMOGLOBIN 26.6 pg (28.0-32.0); MEAN CORPUSCULAR VOLUME 82.4 fL (80.0-94.0); MEAN PLATELET VOLUME 10.5 fl (7.4-10.4); MONOCYTES % 5.2 % (2.0-8.0); NEUTROPHILS % 85.3 % (40.0-76.0); PLATELET 144 x1000/uL (130-400); RED BLOOD CELL COUNT 3.34 mill/uL (4.7-6.1); RED CELL DISTRIBUTION WIDTH 17.4 % (11.6-14.6)
[2018-11-27] MEDS: FERROUS SULFATE 300MG/5ML UDC PO SCH ×3 (07:20→17:20)
[2018-11-27] MEDS: PANTOPRAZOLE SODIUM 40 MG/VIAL IV SCH (08:42)
[2018-11-27] MEDS: LACTOBACILLUS GG CAPSULE PO SCH (08:46)
[2018-11-28] VITALS (16 sets, daily range): BP systolic 93–127; BP diastolic 58–98
[2018-11-28] MEDS: IPRATROPIUM/ALBUTEROL 0.5-3(2.5)MG/3ML NEB HHN SCH ×4 (00:21→20:25)
[2018-11-28] MEDS: METOCLOPRAMIDE HCL 10MG/2ML VIAL IV SCH ×4 (00:44→16:46)
[2018-11-28] MEDS: BLOOD SUGAR DIAGNOSTIC STRIP TEST SCH ×4 (00:44→16:39)
[2018-11-28] MEDS: INSULIN LISPRO 100 UNITS/ML SUBCUT SCH ×4 (06:00→16:39)
[2018-11-28] MEDS: FERROUS SULFATE 300MG/5ML UDC PO SCH ×3 (06:49→16:45)
[2018-11-28] MEDS: LACTOBACILLUS GG CAPSULE PO SCH (09:00)
[2018-11-28] MEDS: PANTOPRAZOLE SODIUM 40 MG/VIAL IV SCH (09:48)
[2018-11-28] MEDS ORDERED: MIDAZOLAM HCL 5 MG/5 ML VIAL ONE (13:20)
[2018-11-28] MEDS ORDERED: FENTANYL CITRATE/PF 50MCG/ML 2ML VIAL ONE (13:20)
[2018-11-28] MEDS ORDERED: MIDAZOLAM HCL 5 MG/5 ML VIAL IV PRN (13:20)
[2018-11-28] MEDS ORDERED: CEFAZOLIN 1000MG PREMIX 50 ML IV ONE ×2 (13:24→13:30)
[2018-11-28] MEDS ORDERED: SIMETHICONE 40 MG/0.6 ML 30ML ONE (15:48)
[2018-11-28] MEDS ORDERED: SODIUM CHLORIDE 0.9% 10ML VIAL ONE (15:48)
[2018-11-28] MEDS: DEXT 5%/0.45% NACL 1000ML 1,000 ML IV SCH (15:56)
[2018-11-29] VITALS (13 sets, daily range): BP systolic 90–103; BP diastolic 55–68
[2018-11-29] MEDS: METOCLOPRAMIDE HCL 10MG/2ML VIAL IV SCH ×4 (00:05→18:14)
[2018-11-29] MEDS: BLOOD SUGAR DIAGNOSTIC STRIP TEST SCH ×4 (00:05→18:14)
[2018-11-29] MEDS: IPRATROPIUM/ALBUTEROL 0.5-3(2.5)MG/3ML NEB HHN SCH ×6 (02:14→20:51)
[2018-11-29] MEDS: DEXT 5%/0.45% NACL 1000ML 1,000 ML IV SCH (04:37)
[2018-11-29] MEDS: INSULIN LISPRO 100 UNITS/ML SUBCUT SCH ×4 (06:00→18:00)
[2018-11-29] MEDS: PANTOPRAZOLE SODIUM 40 MG/VIAL IV SCH (09:25)
[2018-11-29] MEDS: LACTOBACILLUS GG CAPSULE PO SCH (09:25)
[2018-11-29] MEDS: FERROUS SULFATE 300MG/5ML UDC PO SCH ×4 (09:25→18:14)
[2018-11-29 09:31] LABS: BASOPHILS % 0.2 % (0.0-2.0); EOSINOPHILS % 0.2 % (0.0-5.0); HEMATOCRIT. 28.2 % (42.0-52.0); HEMOGLOBIN. 8.8 g/dL (14.0-18.0); LYMPHOCYTES % 9.3 % (20.0-50.0); MEAN CORPUSCULAR HEMOGLOBIN 26.5 pg (28.0-32.0); MEAN CORPUSCULAR VOLUME 84.9 fL (80.0-94.0); MEAN PLATELET VOLUME 10.6 fl (7.4-10.4); MONOCYTES % 6.4 % (2.0-8.0); NEUTROPHILS % 83.9 % (40.0-76.0); PLATELET 108 x1000/uL (130-400); RED BLOOD CELL COUNT 3.32 mill/uL (4.7-6.1); RED CELL DISTRIBUTION WIDTH 18.7 % (11.6-14.6)
[2018-11-30] VITALS (17 sets, daily range): BP systolic 88–113; BP diastolic 51–73
[2018-11-30] MEDS: BLOOD SUGAR DIAGNOSTIC STRIP TEST SCH ×5 (00:06→23:32)
[2018-11-30] MEDS: METOCLOPRAMIDE HCL 10MG/2ML VIAL IV SCH ×5 (00:34→23:33)
[2018-11-30] MEDS: IPRATROPIUM/ALBUTEROL 0.5-3(2.5)MG/3ML NEB HHN SCH ×6 (00:56→20:50)
[2018-11-30] MEDS: INSULIN LISPRO 100 UNITS/ML SUBCUT SCH ×5 (06:00→23:32)
[2018-11-30] MEDS: DEXT 5%/0.45% NACL 1000ML 1,000 ML IV SCH (06:48)
[2018-11-30 08:31] LABS: BASOPHILS % 0.1 % (0.0-2.0); EOSINOPHILS % 0.5 % (0.0-5.0); HEMATOCRIT. 26.6 % (42.0-52.0); HEMOGLOBIN. 8.5 g/dL (14.0-18.0); LYMPHOCYTES % 10.2 % (20.0-50.0); MEAN CORPUSCULAR HEMOGLOBIN 26.7 pg (28.0-32.0); MEAN CORPUSCULAR VOLUME 83.6 fL (80.0-94.0); MEAN PLATELET VOLUME 10.7 fl (7.4-10.4); MONOCYTES % 7.4 % (2.0-8.0); NEUTROPHILS % 81.8 % (40.0-76.0); PLATELET 103 x1000/uL (130-400); RED BLOOD CELL COUNT 3.18 mill/uL (4.7-6.1)
[2018-11-30] MEDS: LACTOBACILLUS GG CAPSULE PO SCH (08:56)
[2018-11-30] MEDS: PANTOPRAZOLE SODIUM 40 MG/VIAL IV SCH (08:56)
[2018-11-30] MEDS: FERROUS SULFATE 300MG/5ML UDC PO SCH ×3 (08:57→17:20)
[2018-11-30] MEDS: ENOXAPARIN 30MG/0.3ML SYR SUBCUT SCH (08:57)
[2018-11-30] MEDS ORDERED: BISACODYL 10MG SUPP PR PRN (14:00)
[2018-11-30] MEDS ORDERED: BISACODYL 10MG SUPP PR SCH (14:00)
[2018-12-01] VITALS (12 sets, daily range): BP systolic 94–121; BP diastolic 44–80
[2018-12-01] MEDS: IPRATROPIUM/ALBUTEROL 0.5-3(2.5)MG/3ML NEB HHN SCH ×5 (00:47→16:59)
[2018-12-01] MEDS: DEXT 5%/0.45% NACL 1000ML 1,000 ML IV SCH (05:11)
[2018-12-01] MEDS: METOCLOPRAMIDE HCL 10MG/2ML VIAL IV SCH ×3 (05:40→17:00)
[2018-12-01] MEDS: BLOOD SUGAR DIAGNOSTIC STRIP TEST SCH ×3 (06:05→16:21)
[2018-12-01] MEDS: INSULIN LISPRO 100 UNITS/ML SUBCUT SCH ×3 (06:05→16:21)
[2018-12-01 07:07] LABS: BASOPHILS % 0.1 % (0.0-2.0); EOSINOPHILS % 0.4 % (0.0-5.0); HEMATOCRIT. 28.2 % (42.0-52.0); HEMOGLOBIN. 8.9 g/dL (14.0-18.0); MEAN CORPUSCULAR HEMOGLOBIN 26.9 pg (28.0-32.0); MEAN CORPUSCULAR VOLUME 85.2 fL (80.0-94.0); MEAN PLATELET VOLUME 11.1 fl (7.4-10.4); MONOCYTES % 8.6 % (2.0-8.0); NEUTROPHILS % 77.9 % (40.0-76.0); PLATELET 110 x1000/uL (130-400); RED CELL DISTRIBUTION WIDTH 18.7 % (11.6-14.6)
[2018-12-01] MEDS: FERROUS SULFATE 300MG/5ML UDC PO SCH ×3 (08:22→16:32)
[2018-12-01] MEDS: LACTOBACILLUS GG CAPSULE PO SCH (08:22)
[2018-12-01] MEDS: PANTOPRAZOLE SODIUM 40 MG/VIAL IV SCH (08:22)
[2018-12-01] MEDS: ENOXAPARIN 30MG/0.3ML SYR SUBCUT SCH (08:23)
[2018-12-01] MEDS ORDERED: AMIODARONE HCL 150 MG in DEXT 5% WATER 100 ML IV NR (11:00)
[2018-12-01] MEDS ORDERED: AMIODARONE HCL 900 MG in DEXT 5% WATER 500 ML IV SCH (11:00)
[2018-12-01] MEDS ORDERED: AMIODARONE HCL 200 MG TABLET PO SCH (12:00)
== END 2018-12-01 21:38 | DRG 870 ==
LOC: ER 17:29 → EDBEDREQ 17:47 → ENRESERV 20:02 → CANRESERV 20:08 → EDBEDREQTM 22:10 → EDBEDREQSVC 22:10 → ENRESERV 22:46 → EDBEDREQ 22:56 → CVICU 11-09 00:20 → 3WST 11-21 10:44
PROVIDERS: ADMIT Internal Medicine Geriatric Medicine; ATTEND Internal Medicine Geriatric Medicine
PROC: 0BH17EZ Insertion of Endotracheal Airway into Trachea, Via Natural or Artificial Opening (ICD-10-PCS; principal; 2018-11-09)
PROC: 5A1955Z Respiratory Ventilation, Greater than 96 Consecutive Hours (ICD-10-PCS; 2018-11-09)
PROC: B54CZZA Ultrasonography of Left Lower Extremity Veins, Guidance (ICD-10-PCS; 2018-11-09)
PROC: 06HN33Z Insertion of Infusion Device into Left Femoral Vein, Percutaneous Approach (ICD-10-PCS; 2018-11-09)
PROC: 05HY33Z Insertion of Infusion Device into Upper Vein, Percutaneous Approach (ICD-10-PCS; 2018-11-10)
PROC: B54MZZA Ultrasonography of Right Upper Extremity Veins, Guidance (ICD-10-PCS; 2018-11-10)
PROC: 5A1D70Z Performance of Urinary Filtration, Intermittent, Less than 6 Hours Per Day (ICD-10-PCS; 2018-11-12)
PROC: 5A1D70Z Performance of Urinary Filtration, Intermittent, Less than 6 Hours Per Day (ICD-10-PCS; 2018-11-14)
PROC: 30233N1 Transfusion of Nonautologous Red Blood Cells into Peripheral Vein, Percutaneous Approach (ICD-10-PCS; 2018-11-16)
PROC: 5A1D70Z Performance of Urinary Filtration, Intermittent, Less than 6 Hours Per Day (ICD-10-PCS; 2018-11-17)
PROC: 5A1D70Z Performance of Urinary Filtration, Intermittent, Less than 6 Hours Per Day (ICD-10-PCS; 2018-11-19)
PROC: 5A1D70Z Performance of Urinary Filtration, Intermittent, Less than 6 Hours Per Day (ICD-10-PCS; 2018-11-20)
PROC: 5A1D70Z Performance of Urinary Filtration, Intermittent, Less than 6 Hours Per Day (ICD-10-PCS; 2018-11-22)
PROC: 05PYX3Z Removal of Infusion Device from Upper Vein, External Approach (ICD-10-PCS; 2018-11-24)
PROC: 0JH63XZ Insertion of Tunneled Vascular Access Device into Chest Subcutaneous Tissue and Fascia, Percutaneous Approach (ICD-10-PCS; 2018-11-24)
PROC: 02HV33Z Insertion of Infusion Device into Superior Vena Cava, Percutaneous Approach (ICD-10-PCS; 2018-11-24)
PROC: B5181ZA Fluoroscopy of Superior Vena Cava using Low Osmolar Contrast, Guidance (ICD-10-PCS; 2018-11-24)
PROC: 5A1D70Z Performance of Urinary Filtration, Intermittent, Less than 6 Hours Per Day (ICD-10-PCS; 2018-11-25)
PROC: 5A1D70Z Performance of Urinary Filtration, Intermittent, Less than 6 Hours Per Day (ICD-10-PCS; 2018-11-27)
PROC: 0DH63UZ Insertion of Feeding Device into Stomach, Percutaneous Approach (ICD-10-PCS; 2018-11-28)
PROC: 5A1D70Z Performance of Urinary Filtration, Intermittent, Less than 6 Hours Per Day (ICD-10-PCS; 2018-11-29)
PROC: 5A1D70Z Performance of Urinary Filtration, Intermittent, Less than 6 Hours Per Day (ICD-10-PCS; 2018-12-01)
DX: A41.3 Sepsis due to Hemophilus influenzae (principal); E43 Unspecified severe protein-calorie malnutrition; G92 Toxic encephalopathy; R65.21 Severe sepsis with septic shock; N17.0 Acute kidney failure with tubular necrosis; J96.01 Acute respiratory failure with hypoxia; K72.00 Acute and subacute hepatic failure without coma; I50.43 Acute on chronic combined systolic (congestive) and diastolic (congestive) heart failure; I21.4 Non-ST elevation (NSTEMI) myocardial infarction; J18.1 Lobar pneumonia, unspecified organism; N18.6 End stage renal disease; J14 Pneumonia due to Hemophilus influenzae; M62.82 Rhabdomyolysis; N39.0 Urinary tract infection, site not specified; D68.9 Coagulation defect, unspecified; E22.2 Syndrome of inappropriate secretion of antidiuretic hormone; E87.2 Acidosis; I82.402 Acute embolism and thrombosis of unspecified deep veins of left lower extremity; J44.0 Chronic obstructive pulmonary disease with (acute) lower respiratory infection; K56.7 Ileus, unspecified; K90.9 Intestinal malabsorption, unspecified; I13.2 Hypertensive heart and chronic kidney disease with heart failure and with stage 5 chronic kidney disease, or end stage renal disease; I27.20 Pulmonary hypertension, unspecified; D50.9 Iron deficiency anemia, unspecified; E87.5 Hyperkalemia; E83.52 Hypercalcemia; B96.89 Other specified bacterial agents as the cause of diseases classified elsewhere; D63.8 Anemia in other chronic diseases classified elsewhere; D69.6 Thrombocytopenia, unspecified; E11.22 Type 2 diabetes mellitus with diabetic chronic kidney disease; E11.319 Type 2 diabetes mellitus with unspecified diabetic retinopathy without macular edema; E11.40 Type 2 diabetes mellitus with diabetic neuropathy, unspecified; E83.42 Hypomagnesemia; E87.6 Hypokalemia; F03.90 Unspecified dementia, unspecified severity, without behavioral disturbance, psychotic disturbance, mood disturbance, and anxiety; F17.200 Nicotine dependence, unspecified, uncomplicated; I25.10 Atherosclerotic heart disease of native coronary artery without angina pectoris; I48.0 Paroxysmal atrial fibrillation; I49.3 Ventricular premature depolarization; I87.2 Venous insufficiency (chronic) (peripheral); E05.90 Thyrotoxicosis, unspecified without thyrotoxic crisis or storm; E21.3 Hyperparathyroidism, unspecified; M19.90 Unspecified osteoarthritis, unspecified site; I95.3 Hypotension of hemodialysis; K29.70 Gastritis, unspecified, without bleeding; K80.20 Calculus of gallbladder without cholecystitis without obstruction; R13.12 Dysphagia, oropharyngeal phase; Y95 Nosocomial condition; Z68.25 Body mass index [BMI] 25.0-25.9, adult; I25.2 Old myocardial infarction; Z86.711 Personal history of pulmonary embolism; Z86.718 Personal history of other venous thrombosis and embolism; Z87.11 Personal history of peptic ulcer disease; Z90.49 Acquired absence of other specified parts of digestive tract; Z79.84 Long term (current) use of oral hypoglycemic drugs; Z79.899 Other long term (current) drug therapy
CPT/HCPCS: 36415; 36558; 36569; 36589; 36600; 71045; 71250; 74018; 74176; 76700; 76770; 76937; 77001; 78580; 80048; 80061; 80076; 80202; 82140; 82248; 82375; 82550; 82553; 82784; 82805; 82962; 83036; 83540; 83550; 83605; 83615; 83735; 83880; 83883; 83970; 84100; 84134; 84145; 84443; 84484; 84550; 85027; 85384; 86334; 86705; 86709; 86803; 86850; 86900; 86920; 87070; 87077; 87186; 87340; 87804; 92610; 93005; 93306; 93970; 93971; 94002; 94003; 94640; 94667; 96361; 96365; 96367; 96375; 97161; 97164; 97530; 99291; A6261; C1750; C1752; C1769; C1887; C9113; J0282; J0330; J0690; J0696; J0885; J1642; J1644; J1650; J1815; J1940; J2060; J2185; J2250; J2370; J2543; J2765; J3010; J3370; J3475; J3480; J3490; J7030; J7040; J7042; J7050; J7060; J7070; J7608; J7620; P9016; P9047; Q9963